=== PATIENT | female | born 1975 | race Caucasian/White ===

== ENCOUNTER 2020-08-23 11:21 | Outpatient (REF) | payer BC, SELFPAY | END 2020-08-23 11:22 | disposition home or self-care (01) | LOC: HO.LAB 11:21 | PROVIDERS: Visit Provider Internal Medicine | DX: Z00.00 Encounter for general adult medical examination without abnormal findings (principal); Z12.4 Encounter for screening for malignant neoplasm of cervix | CPT/HCPCS: 88142 ==

== ENCOUNTER → 2022-02-18 13:15 | Outpatient (RCR) | payer BC, SELFPAY ==
--- NOTE | 2020-08-28 17:49 | MHC.PT.EP ---
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 Pt is deemed an appropriate candidate to receive skilled PT services to address his physical impairments in order to improve his functional ability. Frequency and Duration: The patient will be seen 2x/ wk x 5 wks. Short Term Goals: In 1 week: initiate HEP with evidence of compliance. In 3 weeks: Pt will improve L knee flexion ROM to > 124 degrees; initial: 118 and painful. Fci Goals: In 5 weeks: I with HEP. In 5 weeks: Pt will be able to negotiate stairs without difficulty; initial: moderate difficulty. Treatment Plan: Modalities to reduce pain, spasms and effusion. Manual therapy to restore motion and function. Therapeutic exercise to improve strength and flexibility. Neuromuscular re-education for posture and balance. Therapeutic activities to return to functional activities of daily living. Please sign and return to therapist. Thank you for your referral.
--- NOTE | 2020-10-30 15:40 | MHC.PT.DC ---
[facility] [place] Office [place] Office [place] Office [address] Doreen Dyer [address] [phone] F: [phone] F: [phone] F: [phone] F: [phone] Physical Therapy Discharge Report Diagnosis: L knee pain Date of Surgery: Date of Evaluation: 08/28/20 Date of Discharge: 10/30/20 Treatments to Date: 1 Cancellations to Date: 0 No Shows to Date: 0 Discharge Status: Discharge Summary: Pt did not f/u with PT after her initial evaluation and is DC'd per [facility] attendance policy. Electronically signed by: Austin Estrada PT. Please sign and return to therapist. Thank you for your referral.
== END | disposition home or self-care (01) ==
LOC: HO.PTCHIC 08-28 13:51
PROVIDERS: PCP Internal Medicine; Visit Provider Internal Medicine
DX: M25.562 Pain in left knee (principal)
CPT/HCPCS: 97110; 97161

== ENCOUNTER 2022-03-26 11:20 | Outpatient (REF) | payer BC, SELFPAY ==
[2022-03-26 13:57] LABS: MANUAL DIFF FLAG NO
[2022-03-26 14:03] LABS: Basophils Percent Auto 0.3 % (0-2); Eosinophils Absolute Auto 0.2 X10*3/uL (0.0-0.4); Hematocrit 40.8 % (37.0-47.0); Hemoglobin 13.3 g/dl (12.0-16.0); Imm Gran Abs Auto 0.02 X10*3/uL (0.00-0.03); Imm Gran Pct Auto 0.3 % (0.0-0.4); Lymphocytes Absolute Auto 1.1 X10*3/uL (1.2-4.9); Lymphocytes Percent Auto 14.8 % (20-40); Mean Corpuscular HGB Conc 32.6 g/dl (31.0-35.0); Mean Corpuscular Hemoglobin 31.4 pg (27.0-33.0); Mean Corpuscular Volume 96.2 fL (80.0-98.0); Mean Platelet Volume 10.3 fL (9.4-12.3); Monocytes Absolute Auto 0.2 X10*3/uL (0.1-1.2); Monocytes Percent Auto 3.1 % (2-11); Neutrophils Absolute Auto 6.1 x10*3/uL (2.0-8.3); Neutrophils Percent Auto 79.5 % (45-73); Platelet Count 244 X10*3/uL (160-400); Red Blood Count 4.24 X10*6/uL (4.20-5.50); Red Cell Distribution Width 12.3 % (11.0-16.0); White Blood Count 7.6 X10*3/uL (4.8-10.8)
[2022-03-26 14:19] LABS: Alanine Aminotransferase 27 U/L (0-31); Albumin Level 4.2 g/dL (3.5-5.0); Alkaline Phosphatase 101 U/L (39-117); Anion Gap 15 (12-20); Aspartate Amino Transferase 24 U/L (5-31); Bilirubin Total 0.4 mg/dL (0.0-1.0); Blood Urea Nitrogen 6 mg/dL (9-16); Calcium 8.9 mg/dL (8.4-10.2); Carbon Dioxide 23 mmol/L (22-29); Chloride 107 mmol/L (96-108); Estimated Glomerular Filt Rate > 60; Glucose Random 147 mg/dL (60-115); Potassium 4.1 mmol/L (3.3-5.1); Sodium 141 mmol/L (135-145)
== END 2022-03-26 11:21 | disposition home or self-care (01) ==
LOC: HO.WFDLDS 11:20
PROVIDERS: Visit Provider Family Medicine
DX: Z00.00 Encounter for general adult medical examination without abnormal findings (principal); R10.2 Pelvic and perineal pain
CPT/HCPCS: 36415; 80053; 85025

== ENCOUNTER 2022-05-01 15:05 | Outpatient (REF) | payer BC, SELFPAY ==
--- NOTE | ~2022-05-01 | US_ITS ---
EXAMINATION: US PELVIS COMPLETE CLINICAL INFORMATION: Pelvic and perineal pain; the last menstrual period was 9 months prior. COMPARISON: None. TECHNIQUE: Transabdominal and transvaginal imaging were performed. FINDINGS: The uterus is of normal size and echogenicity measuring 7.7 x 4.7 x 5.2 cm. The uterus is anteverted and anteflexed. A regular homogeneous endometrium is identified measuring 0.5 cm. Nabothian cysts are seen within the cervix. FIBROIDS: There are 3 fibroids seen. 1. Location: Posterior body, myometrial. Size: 0.6 x 0.6 x 0.8 cm. Fibroid characteristics: Heterogeneously hypoechoic. 2. Location: Anterior upper body, myometrial. Size: 2.2 x 1.8 x 1.8 cm. Fibroid characteristics: Heterogeneously hypoechoic. 3. Location: Anterior body, subendometrial. Size: 1.0 x 1.2 x 1.3 cm. Fibroid characteristics: Heterogeneous hyperechoic. Both ovaries are of normal size and echogenicity. The right measures 2.2 x 9.3 x 2.9 cm for a volume of 3.1 mL. The left measures 3.3 x 1.9 x 2.1 cm for a volume of 6.8 mL. There is no pelvic free fluid. No adnexal masses seen. US/US pelvic and transvaginal IMPRESSION: 1. There are uterine fibroids, as detailed. 2. Nabothian cysts are seen within the cervix.
== END 2022-05-01 15:06 | disposition home or self-care (01) ==
LOC: HO.HMGCX 15:05
PROVIDERS: Visit Provider Family Medicine
DX: R10.2 Pelvic and perineal pain (principal)
CPT/HCPCS: 76830; 76856

== ENCOUNTER 2022-11-23 13:17 | Outpatient (REF) | payer BC, SELFPAY ==
[2022-11-24 14:44] LABS: Influenza A PCR NEGATIVE (Negative); Influenza B PCR NEGATIVE (Negative); Resp Syncy Virus RNA Qual PCR NEGATIVE (Negative); SARS COV2 PCR INHOUSE NEGATIVE (Negative)
== END 2022-11-23 13:18 | disposition home or self-care (01) ==
LOC: HO.LNP 13:17
PROVIDERS: Visit Provider Nurse Practitioner Family
DX: Z20.822 Contact with and (suspected) exposure to COVID-19 (principal); J06.9 Acute upper respiratory infection, unspecified
CPT/HCPCS: 0241U

== ENCOUNTER 2023-03-12 13:14 | Outpatient (REF) | payer BC, SELFPAY ==
[2023-03-12 18:10] LABS: Influenza A PCR NEGATIVE (Negative); Influenza B PCR NEGATIVE (Negative); Resp Syncy Virus RNA Qual PCR NEGATIVE (Negative); SARS COV2 PCR INHOUSE NEGATIVE (Negative)
== END 2023-03-12 13:15 | disposition home or self-care (01) ==
LOC: HO.LNP 13:14
PROVIDERS: Visit Provider Nurse Practitioner Family
DX: Z20.822 Contact with and (suspected) exposure to COVID-19 (principal); R09.89 Other specified symptoms and signs involving the circulatory and respiratory systems
CPT/HCPCS: 0241U

== ENCOUNTER → 2023-03-18 14:29 | Outpatient (BNVA) | payer BC, SELFPAY | PROVIDERS: PCP Family Medicine; Visit Provider Surgery | DX: K64.9 Unspecified hemorrhoids (principal) | CPT/HCPCS: 46600 ==

== ENCOUNTER 2023-08-12 10:42 | Outpatient (AMB) | payer OTHER, BC, SELFPAY ==
[2023-08-12 10:44] VITALS: BP 120/80; PULSE 85; TEMP 36.7; O2SAT 99; BMI 42.0
--- NOTE | 2023-08-12 10:44 | MHC.OFFWIV ---
Intake Vital Signs 08/12/23 10:44 Height 5 ft 6 in Weight 260 lb BMI 42.0 BP 120/80 Blood Pressure Location Rt brachial Position Sitting Pulse 85 Pulse Source Pulse Oximeter Temp 98.0 F Temp Source Temporal Artery Scan Pulse Oximetry (%) 99 Oxygen Delivery Method Room Air Intake Visit Reasons: EP, WC/Right knee pain due to fall at work Intake Note: pt is here for c/o right knee pain fell at work Patient Tobacco Use Status: Former Tobacco user Allergies No Known Allergies Allergy (Verified 08/12/23 10:44) Do you need a note to return to daycare/school/sports/work: Yes HPI HPI Comments History of Present Illness Details This is a 48-year-old female with no stated past medical history, 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 Patient states that she arrived at work at 8:00 a.m. 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 Patient states that she fell onto her right knee and fell to the ground but denies any head injury or loss of consciousness. Patient is complaining of an aching pain in her right lateral and right posterior knee that does not radiate. Patient used an ice compress and four [id number] ibuprofen prior to this evaluation. 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: House Alcohol intake: never Patient Tobacco Use Status: Former Tobacco user e-Cigarette/Vaping Use: Never Used Second Hand Smoke Exposure: No service: No Current occupational status: employed Current occupational exposures/hazards: No Cognitive needs: No Hearing needs: No Vision needs: No Review of Systems Const All systems reviewed & are unremarkable except as noted in HPI and below Reports no additional complaints Card Reports no additional complaints Resp Reports no additional complaints Musc Reports abnormal gait and Reports other (right knee pain) Skin/Breast Reports system reviewed and no additional complaints, except as documented Neuro Reports abnormal gait and Denies Sensory deficit (Neuro) Physical Exam Vital Signs: Last Vital Signs Temp 98.0 F 08/12/23 10:44 Pulse 85 08/12/23 10:44 BP 120/80 08/12/23 10:44 Pulse Ox 99 08/12/23 10:44 Oxygen Delivery Method Room Air 08/12/23 10:44 BMI result Body Mass Index 42.0 Const General: cooperative, healthy appearing, comfortable and well developed; No no acute distress Nutritional Appearance: overweight Orientation/consciousness: patient oriented x3 Limitations: no limitations Skin General skin exam: no rashes or lesions noted Lesions: no lesions Trauma: no lacerations or abrasions, no abrasions, no lacerations and no punctures noted Wounds: no wounds Neuro General: patient oriented x3 Gait exam (Neuro): Antalgic gait present (favoring RLE when ambulating) Sensory Exam: No Sensory deficit (Neuro) Extrem Right lower extremity: normal to inspection, full ROM (passive ROM right knee intact) and knee Details: normal to inspection and tenderness Location: of the popliteal fossa, of the lateral joint line and of the distal upper leg (posterior right thigh, distal tenderness; no right calf tenderness); not of the patella and not of the proximal tibia; no swelling; no edema and joint enlargement noted Psych Appearance: grossly normal Mental Status: mental status grossly normal Insight: Good insight present (Psych) Judgement: Good judgement present (Psych) Results Reviewed Results Reviewed: right knee film reviewed with patient; no actute fracture Assessment & Plan Assessment & Plan (1) Right knee pain: Code(s): M25.561 - Pain in right knee Plan: Clinical examination is consistent with a right knee strain; patient will be prescribed Naprosyn, RICE instructions and follow-up with her work-place medical department in 3 days. Medications: New naproxen (Naprosyn) 500 mg PO BID 20 tabs 0RF Coding Level of Care Code New Pt Level 3 (79748) Diagnoses Right knee pain M25.561 Time Spent (min) 25
== END 2023-08-12 11:37 | disposition home or self-care (01) ==
PROVIDERS: PCP Family Medicine; Visit Provider Physician Assistant
DX: M25.561 Pain in right knee (principal)
CPT/HCPCS: 99203

== ENCOUNTER 2023-08-12 10:57 | Outpatient (REF) | payer OTHER, BC, SELFPAY ==
--- NOTE | ~2023-08-12 | XR_ITS ---
EXAMINATION: XR KNEE, RIGHT CLINICAL INFORMATION: Knee pain status post trauma COMPARISON: None available. TECHNIQUE: Four views of the right knee. FINDINGS: Mild tricompartmental degenerative changes are present with some lateral tibial plateau: Femoral condyle osteophytes. Small posterior osteophytes are present at the superior and inferior aspects of the patella. A small joint effusion is seen. There is no chondrocalcinosis. No fractures or dislocations. XR/XR knee RT 4V IMPRESSION: Mild tricompartmental degenerative changes with small joint effusion.
== END 2023-08-12 10:58 | disposition home or self-care (01) ==
LOC: HO.HMGCX 10:57
PROVIDERS: PCP Family Medicine; Visit Provider Physician Assistant
DX: M25.561 Pain in right knee (principal)
CPT/HCPCS: 73564

== ENCOUNTER 2023-08-19 14:34 | Outpatient (AMB) | payer OTHER, BC, SELFPAY ==
--- NOTE | 2023-08-19 14:35 | AM.OFFWIN_ITS ---
Intake Vital Signs 08/19/23 14:37 Height 5 ft 6 in Weight 260 lb BMI 42.0 BP 124/70 Blood Pressure Location Rt brachial Position Sitting Pulse 80 Pulse Source Pulse Oximeter Temp 97.1 F Temp Source Temporal Artery Scan Pulse Oximetry (%) 99 Oxygen Delivery Method Room Air Intake Visit Reasons: EP WC RT knee Injury/Still painful Intake Note: Pt is here c/o right knee pain. Pt states she fell last week and has still not been able to put her right leg straight. Patient Tobacco Use Status: Former Tobacco user Allergies No Known Allergies Allergy (Verified 08/19/23 14:36) Do you need a note to return to daycare/school/sports/work: Yes HPI HPI Comments History of Present Illness Details the patient presents to urgent care for evaluation of ongoing right knee pain. She states that she fell a week ago and was seen here after the initial injury. She fell directly onto her right knee and obtained x-rays which did not reveal fracture. She reports ongoing pain and difficulty ambulating. No recent trauma. She has been using Naprosyn, But ran out and is requesting if a muscle relaxer would be helpful for this problem. In addition she has been out of work and needs another work note. Has a follow-up with PCP next Wednesday [facility] Medical History Bleeding hemorrhoids Herpes Obese Bunion of right foot Knee pain, left Annual physical exam Dysplastic nevi History of broken nose Surgical History History of foot surgery History of tonsillectomy Family History Mother No problems noted. 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: House Alcohol intake: never Patient Tobacco Use Status: Former Tobacco user e-Cigarette/Vaping Use: Never Used Second Hand Smoke Exposure: No service: No Current occupational status: employed Current occupational exposures/hazards: No Cognitive needs: No Hearing needs: No Vision needs: No Physical Exam Vital Signs: Last Vital Signs Temp 97.1 F 08/19/23 14:37 Pulse 80 08/19/23 14:37 BP 124/70 08/19/23 14:37 Pulse Ox 99 08/19/23 14:37 Oxygen Delivery Method Room Air 08/19/23 14:37 BMI result Body Mass Index 42.0 Const General: cooperative and healthy appearing Orientation/consciousness: patient oriented x3 Back/Spine/Pelvis Back: No back tenderness Skin General skin exam: no rashes or lesions noted Neuro General: patient oriented x3 Extrem Other: Knee: limited range of motion. No erythema induration or abrasions. No ligamentous instability appreciated. Tenderness with palpation, medial aspect No lower extremity edema. mild effusion Psych Attitude: cooperative Results Reviewed Results Reviewed: X-ray from last week reviewed: FINDINGS: Mild tricompartmental degenerative changes are present with some lateral tibial plateau: Femoral condyle osteophytes. Small posterior osteophytes are present at the superior and inferior aspects of the patella. A small joint effusion is seen. There is no chondrocalcinosis. No fractures or dislocations. XR/XR knee RT 4V IMPRESSION: Mild tricompartmental degenerative changes with small joint effusion. Assessment & Plan Assessment & Plan (1) Right knee injury: Code(s): S89.91XA - Unspecified injury of right lower leg, initial encounter Plan Patient will need follow-up with PCP. She may eventually need referral to Orthopedics and possible MRI. Knee immobilizer was given today in the office. Will prescribe ibuprofen 600 mg and give patient work note through Wednesday. Medications: New ibuprofen 600 mg PO Q6H PRN 20 tabs 0RF pain Coding Level of Care Code Est Pt Level 3 (54266) Diagnoses Right knee injury S89.91XA
[2023-08-19 14:37] VITALS: BP 124/70; PULSE 80; TEMP 36.2; O2SAT 99; BMI 42.0
== END 2023-08-19 15:15 | disposition home or self-care (01) ==
PROVIDERS: PCP Family Medicine; Visit Provider Emergency Medicine
DX: S89.91XA Unspecified injury of right lower leg, initial encounter (principal)
CPT/HCPCS: 99213

== ENCOUNTER 2023-08-24 10:16 | Outpatient (AMB) | payer OTHER, BC, SELFPAY ==
[2023-08-24 10:26] VITALS: BP 128/66; PULSE 108; RESP 14; O2SAT 98; BMI 41.3
--- NOTE | 2023-08-24 10:26 | MHC.PC.OV ---
Vital Signs 08/24/23 10:26 Height 5 ft 6 in Weight 256 lb BMI 41.3 BP 128/66 Blood Pressure Location Lt brachial Position Sitting Respiration 14 Pulse 108 H Pulse Source Pulse Oximeter Pulse Oximetry (%) 98 Oxygen Delivery Method Room Air Intake Visit Reasons: Follow up from walk in Knee Inj Intake Note: Patient is here to follow up on a right knee injury from 08.12.23. Patient reports she fell on the pavement in a parking lot and was seen by urgent care in [place]. Patient reports she had xrays done and has not heard the results just yet. Patient reports hearing popping noises, having difficulty with stairs and straightening her leg. Manufacturing Engineer Required: No Accompanied by: Self / Same As Patient Allergies No Known Allergies Allergy (Verified 08/24/23 10:34) Tobacco use date assessed: 12/23/22 HPI Follow up from walk in Knee Inj HPI Details Pt presents to f/u R knee pain/injury 08/12/23. Patient reports she fell on the pavement in a parking lot and was seen by urgent care in [place]. Patient reports she had xrays done and has not heard the results just yet. Patient reports hearing popping noises, having difficulty with stairs and straightening her leg. She has been using ibuprofen for relief along with ice/heat. She states she has not had physical therapy yet. [facility] Medical History Bleeding hemorrhoids Herpes Obese Bunion of right foot Knee pain, left Annual physical exam Dysplastic nevi History of broken nose Surgical History History of foot surgery History of tonsillectomy Family History Mother No problems noted. 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 Dylan Cole, Kristen Correa, Eloy Hamilton and colleagues, with an educational jo from [employer]. Review of Systems Const Denies chills, Denies fatigue, Denies fever(s), Denies headache(s) and Denies weakness ENT Denies dizziness and Denies headache(s) Card Denies dyspnea Resp Denies cough, Denies dyspnea, Denies wheezing and Denies other (shortness of breath) Musc Details: R knee pain Denies numbness and Denies tingling Neuro Denies dizziness, Denies headache(s), Denies numbness, Denies tingling and Denies weakness Psych Denies anxiety and Denies depression Endo Denies fatigue Aller/Immun Denies wheezing Physical exam (Primary Care) Vital Signs: Last Vital Signs Pulse 108 H 08/24/23 10:26 Resp 14 08/24/23 10:26 BP 128/66 08/24/23 10:26 Pulse Ox 98 08/24/23 10:26 Oxygen Delivery Method Room Air 08/24/23 10:26 BMI result Body Mass Index 41.3 Tobacco/Smoking Status: Tobacco use Status Tobacco use date assessed 12/23/22 08/24/23 10:35 Patient Tobacco Use Status Former Tobacco user 08/24/23 10:35 e-Cigarette/Vaping Use Never Used 08/24/23 10:35 Thrive Assessment: Date of Thrive Assessment Date Thrive assessed 12/23/22 08/24/23 10:35 Const General: well developed; No acute distress Nutritional Appearance: well nourished Orientation/consciousness: patient oriented x3 HENMT Head: Yes normocephalic and Yes atraumatic Eyes General: appearance normal, both eyes and all related structures Pupils: Equal, round and reactive pupils present EOM: EOMs intact bilaterally Resp Effort & Inspection: normal respiratory effort Neuro General: patient oriented x3 and gait normal Cranial nerves: Yes Equal, round and reactive pupils present Psych Affect: normal affect Assessment and Plan Assessment & Plan (1) Right knee pain: Code(s): M25.561 - Pain in right knee Plan: Ongoing?right?knee?pain?after?fall?and?contusion.??X-rays?x2?have?been?negative?except?for?degenerative?changes?and?a?small?effusion. Start?physical?therapy Referred?to?Ortho Will?give?her?a?short?course?of?prednisone?and?she?continue?ibuprofen. 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 Orders: Orders PT Evaluation and Treatment Today M25.561 - Pain in right knee Referrals Orthopedics Referral M25.561 - Pain in right knee Medications: New cyclobenzaprine 10 mg PO TID 3 days PRN 9 tabs 0RF muscle spasm M25.561 - Pain in right knee prednisone 40 mg (2 x 20 mg) PO DAILY 4 days 8 tabs 0RF Coding Level of Care Code Est Pt Level 3 (13088) Diagnoses Right knee pain M25.561
== END 2023-08-24 11:19 | disposition home or self-care (01) ==
PROVIDERS: PCP Family Medicine; Visit Provider Family Medicine
DX: M25.561 Pain in right knee (principal)
CPT/HCPCS: 99213

== ENCOUNTER 2023-09-06 13:32 | Outpatient (AMB) | payer OTHER, BC, SELFPAY ==
[2023-09-06 13:45] VITALS: BP 122/74; PULSE 81; O2SAT 99; BMI 40.8
--- NOTE | 2023-09-06 13:45 | A.OFFPC_ITS ---
Vital Signs 09/06/23 13:45 Height 5 ft 6 in Weight 252 lb 8 oz BMI 40.8 BP 122/74 Blood Pressure Location Lt brachial Position Sitting Pulse 81 Pulse Oximetry (%) 99 Oxygen Delivery Method Room Air Intake Visit Reasons: follow up knee inj Intake Note: Patient is here for follow up on knee injury on 08/12/2023. Allergies No Known Allergies Allergy (Verified 09/06/23 13:47) Tobacco use date assessed: 09/06/23 HPI follow up knee inj HPI Details 48 y/o female presents to f/u R jeovany ayala. She has an appt. with an fire prevention specialist next week. She reports she has seen physical therapy. She reports muscle relaxants and ibuprofen 600mg has been helping. She did note she had a muscle spasm the other day and had hurt her knee again which reversed her progress a bit. [facility] Medical History Bleeding hemorrhoids Herpes Obese Bunion of right foot Knee pain, left Annual physical exam Dysplastic nevi History of broken nose Surgical History History of foot surgery History of tonsillectomy Family History Mother No problems noted. 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 Dylan Cole, Kristen Correa, Eloy Hamilton and colleagues, with an educational jo from [employer]. Review of Systems Const Denies chills, Denies fatigue, Denies fever(s), Denies headache(s) and Denies weakness ENT Denies dizziness and Denies headache(s) Card Denies dyspnea Resp Denies cough, Denies dyspnea, Denies wheezing and Denies other (shortness of breath) Musc Denies numbness and Denies tingling Neuro Denies dizziness, Denies headache(s), Denies numbness, Denies tingling and Denies weakness Psych Denies anxiety and Denies depression Endo Denies fatigue Aller/Immun Denies wheezing Physical exam (Primary Care) Vital Signs: Last Vital Signs Pulse 81 09/06/23 13:45 BP 122/74 09/06/23 13:45 Pulse Ox 99 09/06/23 13:45 Oxygen Delivery Method Room Air 09/06/23 13:45 BMI result Body Mass Index 40.8 Tobacco/Smoking Status: Tobacco use Status Tobacco use date assessed 09/06/23 09/06/23 13:52 Patient Tobacco Use Status Former Tobacco user 09/06/23 13:52 e-Cigarette/Vaping Use Never Used 09/06/23 13:52 Thrive Assessment: Date of Thrive Assessment Date Thrive assessed 12/23/22 09/06/23 13:52 Const General: well developed; No acute distress Nutritional Appearance: well nourished and obese morbidly obese Orientation/consciousness: patient oriented x3 [facility] Head: Yes normocephalic and Yes atraumatic Eyes General: appearance normal, both eyes and all related structures Pupils: Equal, round and reactive pupils present EOM: EOMs intact bilaterally Resp Effort & Inspection: normal respiratory effort Neuro General: patient oriented x3 and gait normal Cranial nerves: Yes Equal, round and reactive pupils present Psych Affect: normal affect Assessment and Plan Assessment & Plan (1) Right knee pain: Code(s): M25.561 - Pain in right knee Plan: Ongoing?right?knee?pain?and?contusion?with?muscle/tendon?strain Continue?ice?and?elevation Continue?NSAIDs?and?I?will?give?her?another?short?course?of?muscle?relaxant. She?is?refer?to?ortho?and?has?an?appointment?on?September?.??She?will?follow- up?with?me?following?week. She?will?remain?out?of?work?until?September?. (2) Contusion of right knee: Code(s): S80.01XA - Contusion of right knee, initial encounter Plan: As?above (3) Muscle strain of right knee: Code(s): S86.911A - Strain of unspecified muscle(s) and tendon(s) at lower leg level, right leg, initial encounter Plan: As?above Medications: Refilled ibuprofen 600 mg PO Q6H PRN 20 tabs 0RF pain cyclobenzaprine 10 mg PO TID PRN 9 tabs 0RF muscle spasm 3 days M25.561 - Pain in right knee Coding Level of Care Code Est Pt Level 3 (86933) Diagnoses Right knee pain M25.561 Contusion of right knee S80.01XA Muscle strain of right knee S86.911A
== END 2023-09-06 14:36 | disposition home or self-care (01) ==
PROVIDERS: PCP Family Medicine; Visit Provider Family Medicine
DX: M25.561 Pain in right knee (principal); S80.01XA Contusion of right knee, initial encounter; S86.911A Strain of unspecified muscle(s) and tendon(s) at lower leg level, right leg, initial encounter
CPT/HCPCS: 99213

== ENCOUNTER 2023-09-15 11:14 | Outpatient (REF) | payer OTHER, BC, SELFPAY ==
--- NOTE | ~2023-09-15 | XR_ITS ---
EXAMINATION: XR KNEE AP STANDING BILATERAL KNEES XR SUNRISE RIGHT KNEE CLINICAL INFORMATION: Pain in right knee. COMPARISON: August 12, 2023. TECHNIQUE: AP bilateral standing view of the knees was obtained. [place] view of the right knee. FINDINGS: Right Knee: Qomw-mq-sharppxz medial joint space narrowing. Small tricompartmental osteophytes. Mild narrowing of the patellofemoral compartment. Left Knee: Single view of the left knee demonstrates rbjh-jy-mcckgbsq medial joint space narrowing with medial marginal osteophytes. XR/XR knee RT 1V IMPRESSION: Pinu-db-xpggxenm degenerative changes bilateral knees.
--- NOTE | ~2023-09-15 | XR_ITS ---
EXAMINATION: XR KNEE AP STANDING BILATERAL KNEES XR SUNRISE RIGHT KNEE CLINICAL INFORMATION: Pain in right knee. COMPARISON: August 12, 2023. TECHNIQUE: AP bilateral standing view of the knees was obtained. [place] view of the right knee. FINDINGS: Right Knee: Lfjm-jl-edymmetd medial joint space narrowing. Small tricompartmental osteophytes. Mild narrowing of the patellofemoral compartment. Left Knee: Single view of the left knee demonstrates pykx-sh-mbjslmsv medial joint space narrowing with medial marginal osteophytes. XR/XR knee standing BI IMPRESSION: Evwg-wz-iqtsludy degenerative changes bilateral knees.
== END 2023-09-15 11:15 | disposition home or self-care (01) ==
LOC: HO.HOSX 11:14
PROVIDERS: Visit Provider Physician Assistant
DX: M17.11 Unilateral primary osteoarthritis, right knee (principal); S80.01XA Contusion of right knee, initial encounter; M25.562 Pain in left knee
CPT/HCPCS: 20610; 73560; 73565; 99202; J1040

== ENCOUNTER 2023-09-15 14:51 | Outpatient (AMB) | payer OTHER, BC, SELFPAY ==
--- NOTE | 2023-09-15 15:04 | A.OFFVIS_ITS ---
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 Patient reports a fall at work landing on her right knee. She was treated at a walk in clinic where xrays were taken as well as PCP who ordered PT. She states attending PT twice a week. Currently continues to have intermittent pain that fluctuates in intensity. Finds support with knee brace. Finds no relief with ibuprofen and some relief with cyclobenzaprine however she had finished her rx. 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 She was seen at walk-in clinic where x-rays were performed and she was also seen by her PCP who ordered physical therapy. She states she has intermittent pain and limited ROM in her knee which fluctuates in intensity. Her pain is aggravated with ambulation and stair use. She also experiences cracking, clicking and crunching in her knee. She is working with physical therapy as instructed. She finds relief with her knee brace. She finds no relief with ibuprofen and mild relief with cyclobenzaprine. She does not have a history of diabetes. 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 [facility] Medical History Bleeding hemorrhoids Herpes Obese Bunion of right foot Knee pain, left Annual physical exam Dysplastic nevi History of broken nose Surgical History History of foot surgery History of tonsillectomy Family History Mother No problems noted. 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 Housing: House Alcohol intake: never Patient Tobacco Use Status: Former Tobacco user e-Cigarette/Vaping Use: Never Used Second Hand Smoke Exposure: No service: No Current occupational status: unemployed Current occupational exposures/hazards: No Cognitive needs: No Hearing needs: No Vision needs: No Review of Systems Const All systems reviewed & are unremarkable except as noted in HPI and below Physical Exam Vital Signs: BMI result Body Mass Index 40.7 Const General: cooperative, healthy appearing, comfortable, no acute distress, well developed and alert Orientation/consciousness: patient oriented x3 HEENT Head: Yes normal to inspection, Yes normocephalic and Yes atraumatic Eyes General: appearance normal, both eyes and all related structures Resp Effort & Inspection: normal respiratory effort and able to speak in complete sentences Cardio Rate: regular rate Peripheral pulses: Peripheral pulses 2+ throughout GI Palpation (GI): Soft to palpation Skin Lesions: no lesions Rashes: no rashes Neuro General: patient oriented x3 Extrem Other: Right knee: Skin intact, no erythema or joint effusion. Tenderness along the medial and lateral joint line. Full ROM with crepitus. Negative Carol?s. No ligamentous laxity. NVI. Office Procedures Joint Injection/Drain Joint Injection/Drain Primary Site: right knee Prep: site was prepped using aseptic technique and ethochloride spray was applied Injected: 80 mg of, DepoMedrol, with 8 mL of, 1% plain lidocaine and in the joint Approach Used: anterolateral Procedure: The patient tolerated the procedure well and there was some relief with the local anesthesia Coding 92608 - Glenohumeral/Tronchanteric Bursa/Intraarticular Procedure code (CPT) selection complete Results Reviewed Results Reviewed: Xrays were obtained in the office today and personally reviewed by me of the right knee show PF oa Assessment & Plan Assessment & Plan (1) Patellofemoral arthritis of right knee: Code(s): M17.11 - Unilateral primary osteoarthritis, right knee (2) Contusion of right knee: Code(s): S80.01XA - Contusion of right knee, initial encounter Qualifiers: Encounter type: initial encounter Qualified Code(s): S80.01XA - Contusion of right knee, initial encounter Plan We discussed options today which include steroid injection. They did consent to move forward with the right knee injection, which was tolerated well. I recommended rest, ice and elevation and OTC anti-inflammatories PRN for discomfort. She will continue with physical therapy and remain out of work September 27, at which point she will return light duty and avoid prolonged standing, walking, stairs, pushing, pulling or carrying. If symptoms persist or worsens over the next 6-8 weeks, patient will contact the office, otherwise follow-up as needed. Orders: Orders PT Evaluation and Treatment 09/15/23 M17.11 - Unilateral primary osteoarthritis, right knee XR knee standing BI 09/15/23 M25.561 - Pain in right knee, M25.562 - Pain in left knee XR knee RT 1V 09/15/23 M25.561 - Pain in right knee Patient Instructions: Scribed for Ellen Mike PA-C, by Antwan López medical records assistant, on 09/15/2023 at 3:00 PM EST. I, Ellen Mike PA-C, have personally reviewed and agree with the information entered by the scribe. Coding Level of Care Code New Pt Level 3 (73824) Diagnoses Patellofemoral arthritis of right knee M17.11 Contusion of right knee, initial encounter S80.01XA Encounter type: initial encounter CPT Codes Coding - Joint 7: 89165 - Glenohumeral/Tronchanteric Bursa/Intraarticular ([id number])
[2023-09-15 15:08] VITALS: BMI 40.7
== END 2023-09-15 15:35 | disposition home or self-care (01) ==
PROVIDERS: PCP Family Medicine; Visit Provider Physician Assistant
DX: M17.11 Unilateral primary osteoarthritis, right knee (principal); S80.01XA Contusion of right knee, initial encounter
CPT/HCPCS: 20610; 99203

== ENCOUNTER 2023-09-23 15:23 | Outpatient (AMB) | payer OTHER, BC, SELFPAY ==
[2023-09-23 15:41] VITALS: BP 126/76; PULSE 83; O2SAT 97; BMI 41.2
--- NOTE | 2023-09-23 15:41 | A.OFFPC_ITS ---
Vital Signs 09/23/23 15:41 Height 5 ft 6 in Weight 255 lb 2 oz BMI 41.2 BP 126/76 Blood Pressure Location Lt brachial Position Sitting Pulse 83 Pulse Source Pulse Oximeter Pulse Oximetry (%) 97 Oxygen Delivery Method Room Air Intake Visit Reasons: Follow-up?right?knee?pain Intake Note: Patient is here for ollow up on right knee, feels like she is developing a head cold. Patient would like refill of Ibuprofen and would like some Flonase for the head cold. Allergies No Known Allergies Allergy (Verified 09/23/23 15:44) Tobacco use date assessed: 09/06/23 Dental Screening Dental Screen Date: 09/23/23 Did you have a dental visit in the last 12 months?: Yes Did you have a dental problem in the last 6 months where you did not have access to dental care?: No Was dental information given to patient?: Patient has dentist HPI Follow-up?right?knee?pain HPI Details 48 y/o female presents to f/u R knee marga n. Had seen orthopedics 09/15/23. She had tolerated R knee injection well. They had mentioned she could go back to work with light duty 09/27/23. Pt has complaints of a head cold. She has not done any covid testing. [facility] Medical History Bleeding hemorrhoids Herpes Obese Bunion of right foot Knee pain, left Annual physical exam Dysplastic nevi History of broken nose Surgical History History of foot surgery History of tonsillectomy Family History Mother No problems noted. 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 Dylan Cole, Kristen Correa, Eloy Hamilton and colleagues, with an educational jo from [employer]. Review of Systems Const Denies chills, Denies fatigue, Denies fever(s), Denies headache(s) and Denies weakness ENT Denies dizziness and Denies headache(s) Card Denies dyspnea Resp Denies cough, Denies dyspnea, Denies wheezing and Denies other (shortness of breath) Musc Denies numbness and Denies tingling Neuro Denies dizziness, Denies headache(s), Denies numbness, Denies tingling and Denies weakness Psych Denies anxiety and Denies depression Endo Denies fatigue Aller/Immun Denies wheezing Physical exam (Primary Care) Vital Signs: Last Vital Signs Pulse 83 09/23/23 15:41 BP 126/76 09/23/23 15:41 Pulse Ox 97 09/23/23 15:41 Oxygen Delivery Method Room Air 09/23/23 15:41 BMI result Body Mass Index 41.2 Tobacco/Smoking Status: Tobacco use Status Tobacco use date assessed 09/06/23 09/23/23 15:45 Patient Tobacco Use Status Former Tobacco user 09/23/23 15:45 e-Cigarette/Vaping Use Never Used 09/23/23 15:45 Thrive Assessment: Date of Thrive Assessment Date Thrive assessed 12/23/22 09/23/23 15:45 Const General: well developed; No acute distress Nutritional Appearance: well nourished Orientation/consciousness: patient oriented x3 HENMT Head: Yes normocephalic and Yes atraumatic Eyes General: appearance normal, both eyes and all related structures Pupils: Equal, round and reactive pupils present EOM: EOMs intact bilaterally Resp Effort & Inspection: normal respiratory effort Neuro General: patient oriented x3 and gait normal Cranial nerves: Yes Equal, round and reactive pupils present Psych Affect: normal affect Assessment and Plan Assessment & Plan (1) Contusion of right knee: Code(s): S80.01XA - Contusion of right knee, initial encounter Qualifiers: Encounter type: initial encounter Qualified Code(s): S80.01XA - Contusion of right knee, initial encounter Plan: Improving?and?now?s/p?injection?therapy?with?ortho She?can?return?to?work?on?09/27/2023?for?light?duty?with?restrictions Filled?out?paperwork?with?restrictions-see?scanned?document (2) Head congestion: Code(s): R09.81 - Nasal congestion Plan: Likely?mild?viral?illness?such?as?cold. Will?check?COVID/flu/RSV?however Will?give?her?a?script?for?Flonase Orders: Orders Comprehensive [place]. Panel Fast Today Z00.00 - Encounter for general adult medical examination without abnormal findings Complete Blood Count Auto Diff Today Z00.00 - Encounter for general adult medical examination without abnormal findings Lipid Panel Today Z00.00 - Encounter for general adult medical examination without abnormal findings Microalbumin, Random (w Creat) Today I10 - Essential (primary) hypertension TSH reflex Free T4 Today Z00.00 - Encounter for general adult medical examina tion without abnormal findings UA and rflx microscopic Today Z00.00 - Encounter for general adult medical examination without abnormal findings Medications: New fluticasone propionate 50 mcg/actuation (Flonase Allergy Relief) administer into each nostril 1 spray intranasal Q12H 16 grams 2RF 30 days Refilled ibuprofen 600 mg PO Q6H PRN 20 tabs 0RF pain Coding Level of Care Code Est Pt Level 3 (01451) Diagnoses Contusion of right knee, initial encounter S80.01XA Encounter type: initial encounter Head congestion R09.81
== END 2023-09-23 16:45 | disposition home or self-care (01) ==
PROVIDERS: PCP Family Medicine; Visit Provider Family Medicine
DX: S80.01XA Contusion of right knee, initial encounter (principal); R09.81 Nasal congestion
CPT/HCPCS: 99213

== ENCOUNTER 2023-09-23 15:23 | Outpatient (REF) | payer BC, SELFPAY ==
[2023-09-24 12:27] LABS: Influenza A PCR NEGATIVE (Negative); Influenza B PCR NEGATIVE (Negative); Resp Syncy Virus RNA Qual PCR NEGATIVE (Negative); SARS COV2 PCR INHOUSE POSITIVE (Negative)
== END 2023-09-23 15:24 | disposition home or self-care (01) ==
LOC: HO.LNP 15:23
PROVIDERS: Visit Provider Family Medicine
DX: R09.89 Other specified symptoms and signs involving the circulatory and respiratory systems (principal); Z20.822 Contact with and (suspected) exposure to COVID-19
CPT/HCPCS: 0241U

== ENCOUNTER 2023-10-27 15:21 | Outpatient (AMB) | payer OTHER, BC, SELFPAY ==
--- NOTE | 2023-10-27 15:24 | MHC.OFFVIS ---
Intake Vital Signs 10/27/23 15:38 Height 5 ft 6 in Weight 255 lb BMI 41.2 Intake Visit Reasons: ov-Rt knee s/p w/c injury Intake Note: Marylin a 48 year old female presents today for an WC evaluation of right knee injury, DOI 08/12/23 & last injection 09/15/23. Patient reports her knee is still painful the injection helped a little she states that she is doing physical therapy and it is helping a little. Patient reports working light duty but is still a lot of walking . Allergies No Known Allergies Allergy (Verified 10/27/23 15:41) HPI ov-Rt knee s/p w/c injury HPI Details 48-year-old female who returns to the office today for a follow-up of right knee, 08/12/23. She continues to have throbbing pain in her knee however she does reports she has improvement since her last visit. She finds difficulty with stair use. She denies any catching, locking, or pain with twisting her knee. She had her last injection on 09/15/23 which provided her mild relief. She is working on physical therapy with mild benefits. She states she is working light duty however it does involve a lot of walking. [facility] Medical History Bleeding hemorrhoids Herpes Obese Bunion of right foot Knee pain, left Annual physical exam Dysplastic nevi History of broken nose Surgical History History of foot surgery History of tonsillectomy Family History Mother No problems noted. 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 Housing: House Alcohol intake: never Patient Tobacco Use Status: Former Tobacco user e-Cigarette/Vaping Use: Never Used Second Hand Smoke Exposure: No service: No Current occupational status: unemployed Current occupational exposures/hazards: No Cognitive needs: No Hearing needs: No Vision needs: No Review of Systems Const All systems reviewed & are unremarkable except as noted in HPI and below Physical Exam Vital Signs: BMI result Body Mass Index 41.2 Const General: cooperative, healthy appearing, comfortable, no acute distress, well developed and alert Orientation/consciousness: patient oriented x3 HEENT Head: Yes normal to inspection, Yes normocephalic and Yes atraumatic Eyes General: appearance normal, both eyes and all related structures Resp Effort & Inspection: normal respiratory effort and able to speak in complete sentences Cardio Rate: regular rate Peripheral pulses: Peripheral pulses 2+ throughout GI Palpation (GI): Soft to palpation Skin Lesions: no lesions Rashes: no rashes Neuro General: patient oriented x3 Extrem Other: Right knee: Skin intact, no erythema or joint effusion. MIld retropatella tenderness. Full ROM with crepitus. Negative Carol?s. No ligamentous laxity. NVI. Assessment & Plan Assessment & Plan (1) Patellofemoral arthritis of right knee: Code(s): M17.11 - Unilateral primary osteoarthritis, right knee (2) Contusion of right knee: Code(s): S80.01XA - Contusion of right knee, initial encounter Qualifiers: Encounter type: initial encounter Qualified Code(s): S80.01XA - Contusion of right knee, initial encounter Plan She continues to have limitations with daily activities; however, she has made progres since her last appt She will continue with her current working restrictions and she will continue with physical therapy improve her strength. I would like to see her back in 4-6 weeks for reevaluation, sooner if needed. Patient Instructions: Scribed for Ellen Mike PA-C, by Antwan López medical office asst, on 10/27/2023 at 3:30 PM EST. IEllen PA-C, have personally reviewed and agree with the information entered by the scribe. Coding Level of Care Code Est Pt Level 3 (48584) Diagnoses Patellofemoral arthritis of right knee M17.11 Contusion of right knee, initial encounter S80.01XA Encounter type: initial encounter
[2023-10-27 15:38] VITALS: BMI 41.2
== END 2023-10-27 16:11 | disposition home or self-care (01) ==
PROVIDERS: PCP Family Medicine; Visit Provider Physician Assistant
DX: M17.11 Unilateral primary osteoarthritis, right knee (principal); S80.01XA Contusion of right knee, initial encounter
CPT/HCPCS: 99213

== ENCOUNTER → 2023-10-27 15:21 | Outpatient (BNVA) | payer OTHER, BC, SELFPAY | PROVIDERS: PCP Family Medicine; Visit Provider Physician Assistant | DX: M17.11 Unilateral primary osteoarthritis, right knee (principal); S80.01XA Contusion of right knee, initial encounter | CPT/HCPCS: 99212 ==

== ENCOUNTER 2023-11-01 11:00 | Outpatient (RCR) | payer OTHER, BC, SELFPAY ==
--- NOTE | 2023-08-30 11:51 | MHC.PT.EP ---
[facility] Office [place] Office [place] Office [address] Doreen Dyer [address] [phone] F: [phone] F: [phone] F: [phone] F: [phone] Physical Therapy Plan of Care Date of Evaluation: 08/30/23 Date of Surgery: Diagnosis: This is a 48 yo female presenting to skilled PT with a script for R knee pain. Assessment: This is a 48 yo female presenting to skilled PT with a script for R knee pain. On 08/12 patient fell directly onto her right knee on the pavement in a parking lot. She has been to the walk-in in [place] 2 times since the accident and has followed up with her PCP. She reports ongoing pain, crepitus, difficulty with ambulating/stairs and with knee extension (improved since the injury but still present). Her pain is located posteriorly and medial and lateral to the patella. Pain is occasionally sharp but can be achy, dull, wet and you can feel the heat and throbbing as well as tight. She has been using Naprosyn, naproxen, ice and heat and was also given a short course of prednisone. She was also given a sleeve brace. She has been out of work and will be out of week until she sees her PCP again on 09/06. She has a orthopedic appointment as well on 09/15. Assessment reveals pain that ranges from up to a 8/10 at the worst. Patient demos decreased hip and knee ROM, strength of hip and knee, TTP at , and impaired posture with forward head and rounded shoulders as well as decreased gait and balance. Based on functional limitations, impaired QOL and pain tolerance patient is a good candidate for skilled PT 2x/wk for 5wks. Frequency and Duration: The patient will be seen 2x/wk for 5wks Short Term Goals: (in 2 weeks) Patient will improve knee AROM flexion by at least 10 degs without assist and extension by 5 degs without assist Patient will demo good understanding and performance of quad set in multiple different planes without cues from PT Patient will be I in HEP Patient will return to reciprocal gait on stairs Shelter Goals: (in 5 weeks) Patient will report 75% improvement in balance and strength of LLE as evidenced by reports no of falls or buckling in LE Patient will improve LEFs by 10 points Patient will demo WFL AROM of knee, hip and ankle Patient will demo proper squat and lift techniques without increase in pain Patient will return to work in full when medically cleared by MD Treatment Plan: Modalities to reduce pain, spasms and effusion. Manual therapy to restore motion and function. Therapeutic exercise to improve strength and flexibility. Neuromuscular re-education for posture and balance. Therapeutic activities to return to functional activities of daily living. Electronically signed by: Kristi Gramajo PT Please sign and return to therapist. Thank you for your referral.
--- NOTE | 2023-09-06 10:18 | MHC.PT.OD ---
[facility] [place] [facility] [place] [facility] [place] [facility] [address] Doreen Dyer [address] [phone] F: [phone] F: [phone] F: [phone] F: [phone] Physical Therapy Daily Note Diagnosis: This is a 48 yo female presenting to skilled PT with a script for R knee pain. Date of Surgery: Date of Evaluation: 08/30/23 Date of Treatment: 09/06/23 Treatments to Date: 3 Cancellations to Date: 0 No Shows to Date: 0 Authorized Visits: 10 Insurance End Date: Precautions/ Contraindications:NA Subjective: Patient fell and banged opp knee but did not hurt her R knee on the stairs. Reports pain last night and spasms over the weekend posteriorly. Pain Score and Location: 8 R knee Objective Flowsheet: Tests & Measures See eval Exercises recumbent bike x10 mins level 2 forward standing hip flexion and extension stretching on stair standing gastroc stretch on wedge x10 sec x5R quad sets x5 sec holds 2x10R SLR 2x10R - NT heel slides x5 sec holds 2x10R SAQ x5 sec holds 2x10R hamstring stretch supine hands under knee extending heel slowly, holding for 10 secs x10 R standing runner's stretch x3 R - NT ed regarding PT POC, anatomy, pain management, stim management, use of adjunct bracing, footwear, properties of ice IASTM posterior knee and medial knee, patellar mobs - NT KT with ed on care, rock sauce application (skin intact to light touch) anterior and posterior knee for KT Modalities IFC in supine with bolster, ice anterior and posterior knee x10 mins Assessment: 09/06: Patient continues with a significant amount of pain. Ambulating with antalgic gait and unable to achieve full extension in all planes today. She does not feel ready to return to work and is seeing the ortho the first week of September. Continued tens and KT for pain management today. 09/01: Patient with improved gait and ROM prior and during session. Trialed exercises without increase in pain noted, she was tender to touch medial knee and posterior knee. Enjoyed manual work for pain management and felt like this was beneficial. Educated with stim today on items listed above. Trialed KT with ed on care. Educated on importance of icing over the weekend. This is a 48 yo female presenting to skilled PT with a script for R knee pain. On 08/12 patient fell directly onto her right knee on the pavement in a parking lot. She has been to the walk-in in [place] 2 times since the accident and has followed up with her PCP. She reports ongoing pain, crepitus, difficulty with ambulating/stairs and with knee extension (improved since the injury but still present). Her pain is located posteriorly and medial and lateral to the patella. Pain is occasionally sharp but can be achy, dull, wet and you can feel the heat and throbbing as well as tight. She has been using Naprosyn, naproxen, ice and heat and was also given a short course of prednisone. She was also given a sleeve brace. She has been out of work and will be out of week until she sees her PCP again on 09/06. She has a orthopedic appointment as well on 09/15. Assessment reveals pain that ranges from up to a 8/10 at the worst. Patient demos decreased hip and knee ROM, strength of hip and knee, TTP at , and impaired posture with forward head and rounded shoulders as well as decreased gait and balance. Based on functional limitations, impaired QOL and pain tolerance patient is a good candidate for skilled PT 2x/wk for 5wks. PT Plan: ther-ex for ROM and strengthening, bike, gait, functional training, manual work for tissue release and swelling/pain management, ice Short Term Goals: (in 2 weeks) Patient will improve knee AROM flexion by at least 10 degs without assist and extension by 5 degs without assist Patient will demo good understanding and performance of quad set in multiple different planes without cues from PT Patient will be I in HEP Patient will return to reciprocal gait on stairs Care Home Goals: (in 5 weeks) Patient will report 75% improvement in balance and strength of LLE as evidenced by reports no of falls or buckling in LE Patient will improve LEFs by 10 points Patient will demo WFL AROM of knee, hip and ankle Patient will demo proper squat and lift techniques without increase in pain Patient will return to work in full when medically cleared by Electronically signed by: Kristi Gramajo, PT
--- NOTE | 2023-12-02 12:53 | MHC.PT.DC ---
[facility] [place] Office [place] Office [place] Office [address] Doreen Dyer [address] [phone] F: [phone] F: [phone] F: [phone] F: [phone] Physical Therapy Discharge Report Diagnosis: This is a 48 yo female presenting to skilled PT with a script for R knee pain. Date of Surgery: Date of Evaluation: 08/30/23 Date of Discharge: 12/02/23 Treatments to Date: 17 Cancellations to Date: 0 No Shows to Date: 0 Discharge Status: Achieved Goals Improved Function Independent with HEP Discharge Summary: Patient has returned to work in full. Demos good ROM, strength, gait and pain management. She has an HEP to continue on her own. DC to HEP. Electronically signed by: Kristi Gramajo PT Please sign and return to therapist. Thank you for your referral.
== END 2023-12-02 12:53 | disposition home or self-care (01) ==
LOC: HO.PTCHIC 11:00
PROVIDERS: PCP Family Medicine; Visit Provider Family Medicine
DX: M25.561 Pain in right knee (principal)
CPT/HCPCS: 97110; 97140; 97162; 97164; 97530

== ENCOUNTER 2023-11-24 14:16 | Outpatient (AMB) | payer OTHER, BC, SELFPAY ==
--- NOTE | 2023-11-24 14:24 | A.OFFVIS_ITS ---
Intake Vital Signs 11/24/23 14:27 Height 5 ft 6 in Weight 255 lb BMI 41.2 Intake Visit Reasons: ov- right knee pain Intake Note: Marylin a 48 year old female presents today for a follow up of right knee. Patient report she has had improvement in pain since her last visit. She has mild pain that gets worse with walking, stating her job requires her to do prolong walking. Allergies No Known Allergies Allergy (Verified 11/24/23 14:28) HPI ov- right knee pain HPI Details 48-year-old female who returns to the [facility] today for a follow-up of right knee pain. She reports she has improvement in her pain since the last visit however she does c/o mild pain in her knee. Her pain is aggravated with ambulation and she states her job requires her to do prolonged walking. She had an injection in the past which provided her relief. She has no other concerns today. [facility] Medical History Bleeding hemorrhoids Herpes Obese Bunion of right foot Knee pain, left Annual physical exam Dysplastic nevi History of broken nose Surgical History History of foot surgery History of tonsillectomy Family History Mother No problems noted. 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 Alcohol intake: never Patient Tobacco Use Status: Former Tobacco user e-Cigarette/Vaping Use: Never Used Second Hand Smoke Exposure: No service: No Current occupational status: unemployed Current occupational exposures/hazards: No Cognitive needs: No Hearing needs: No Vision needs: No Review of Systems Const All systems reviewed & are unremarkable except as noted in HPI and below Physical Exam Vital Signs: BMI result Body Mass Index 41.2 Const General: cooperative, healthy appearing, comfortable, no acute distress, well developed and alert Orientation/consciousness: patient oriented x3 HEENT Head: Yes normal to inspection, Yes normocephalic and Yes atraumatic Eyes General: appearance normal, both eyes and all related structures Resp Effort & Inspection: normal respiratory effort and able to speak in complete sentences Cardio Rate: regular rate Peripheral pulses: Peripheral pulses 2+ throughout GI Palpation (GI): Soft to palpation Skin Lesions: no lesions Rashes: no rashes Neuro General: patient oriented x3 Extrem Other: Right knee: Skin intact, no erythema or joint effusion. MIld retropatella tenderness. Full ROM with crepitus. Negative Carol?s. No ligamentous laxity. NVI. Assessment & Plan Assessment & Plan (1) Patellofemoral arthritis of right knee: Code(s): M17.11 - Unilateral primary osteoarthritis, right knee (2) Contusion of right knee: Code(s): S80.01XA - Contusion of right knee, initial encounter Qualifiers: Encounter type: initial encounter Qualified Code(s): S80.01XA - Contusion of right knee, initial encounter Plan She continues to improve with daily activities and she has been working with limitations and feels she is ready to progress to full duty without restrictions which was signed off today. If symptoms persist or worsens, patient will contact the office, otherwise follow-up as needed. Patient Instructions: Scribed for Ellen Mike PA-C, by Antwan López medical secretary, on 11/24/2023 at 3:30 PM EST. I, Ellen Mike PA-C, have personally reviewed and agree with the information entered by the scribe. Coding Level of Care Code Est Pt Level 3 (86770) Diagnoses Patellofemoral arthritis of right knee M17.11 Contusion of right knee, initial encounter S80.01XA Encounter type: initial encounter
[2023-11-24 14:27] VITALS: BMI 41.2
== END 2023-11-24 14:50 | disposition home or self-care (01) ==
PROVIDERS: PCP Family Medicine; Visit Provider Physician Assistant
DX: M17.11 Unilateral primary osteoarthritis, right knee (principal); S80.01XA Contusion of right knee, initial encounter
CPT/HCPCS: 99213

== ENCOUNTER → 2023-11-24 14:16 | Outpatient (BNVA) | payer OTHER, BC, SELFPAY | PROVIDERS: PCP Family Medicine; Visit Provider Physician Assistant | DX: M17.11 Unilateral primary osteoarthritis, right knee (principal); S80.01XA Contusion of right knee, initial encounter | CPT/HCPCS: 99212 ==

== ENCOUNTER 2024-02-18 10:58 | Outpatient (REF) | payer OTHER, BC, SELFPAY ==
[2024-02-18 14:27] LABS: MANUAL DIFF FLAG NO
[2024-02-18 14:36] LABS: Appearance Urine Clear; Color Urine Yellow; Glucose Urine UA Negative (Negative); Leukocyte Esterase Urine Negative (Negative); Nitrite Urine Negative (Negative); Specific Gravity - Urine 1.015 (1.005-1.025); Urine Blood Negative (Negative); Urine Ketones Negative (Negative); Urine Protein Negative (Neg-Trace)
[2024-02-18 14:38] LABS: Basophils Percent Auto 0.3 % (0-2); Eosinophils Absolute Auto 0.1 X10*3/uL (0.0-0.4); Hematocrit 41.6 % (37.0-47.0); Hemoglobin 13.8 g/dl (12.0-16.0); Imm Gran Abs Auto 0.03 X10*3/uL (0.00-0.03); Imm Gran Pct Auto 0.5 % (0.0-0.4); Lymphocytes Percent Auto 33.7 % (20-40); Mean Corpuscular HGB Conc 33.2 g/dl (31.0-35.0); Mean Corpuscular Hemoglobin 31.2 pg (27.0-33.0); Mean Corpuscular Volume 93.9 fL (80.0-98.0); Mean Platelet Volume 10.6 fL (9.4-12.3); Monocytes Absolute Auto 0.4 X10*3/uL (0.1-1.2); Monocytes Percent Auto 6.4 % (2-11); Neutrophils Absolute Auto 3.5 x10*3/uL (2.0-8.3); Neutrophils Percent Auto 57.1 % (45-73); Platelet Count 264 X10*3/uL (160-400); Red Blood Count 4.43 X10*6/uL (4.20-5.50); Red Cell Distribution Width 12.4 % (11.0-16.0); White Blood Count 6.1 X10*3/uL (4.8-10.8)
[2024-02-18 15:27] LABS: Creatinine Urine 93.06 mg/dL; Microalbum/Creatinine Ratio Ur 6.4 ug/mg cr (<30)
[2024-02-18 15:31] LABS: Alanine Aminotransferase 46 U/L (0-31); Albumin Level 4.2 g/dL (3.5-5.0); Alkaline Phosphatase 113 U/L (39-117); Anion Gap 14 (12-20); Aspartate Amino Transferase 31 U/L (5-31); Bilirubin Total 0.4 mg/dL (0.0-1.0); Blood Urea Nitrogen 8 mg/dL (9-16); Calcium 9.4 mg/dL (8.4-10.2); Carbon Dioxide 22 mmol/L (22-29); Chloride 109 mmol/L (96-108); Cholesterol 180 mg/dL (<200); Estimated Glomerular Filt Rate > 60; Glucose Fasting 107 mg/dL (60-99); HDL Cholesterol 51 mg/dL (>40); LDL Cholesterol Calculated 114 mg/dL (<100); Potassium 4.2 mmol/L (3.3-5.1); Sodium 141 mmol/L (135-145); Total Protein 7.3 g/dL (6.5-8.0); Triglycerides 76 mg/dL (<150)
[2024-02-18 15:33] LABS: TSH reflex Free T4 1.61 uIU/mL (0.32-4.0)
== END 2024-02-18 10:59 | disposition home or self-care (01) ==
LOC: HO.WFDLDS 10:58
PROVIDERS: Visit Provider Family Medicine
DX: Z00.00 Encounter for general adult medical examination without abnormal findings (principal); I10 Essential (primary) hypertension
CPT/HCPCS: 36415; 80053; 80061; 81003; 82043; 82570; 84443; 85025

== ENCOUNTER 2025-05-11 11:42 | Outpatient (AMB) | payer BC, SELFPAY ==
--- NOTE | 2025-05-11 12:00 | MHC.PC.OV ---
Vital Signs 05/11/25 12:09 Height 5 ft 6 in Weight 259 lb 6 oz BMI 41.9 BP 136/80 Blood Pressure Location Rt brachial Position Sitting Respiration 14 Pulse 73 Pulse Source Pulse Oximeter Temp 98.1 F Temp Source Oral Pulse Oximetry (%) 97 Oxygen Delivery Method Room Air Intake Visit Reasons: Referral for Derm. Intake Note: patient is scheduled for fmla paperwork, patient would like to get tested for insulin resistant and blurred vision Magnetic Tape Winder Required: No Allergies No Known Allergies Allergy (Verified 05/11/25 12:05) Medication List - Last Reconciled 05/11/25 by Avila Gray MD fluticasone propionate 50 mcg/actuation (Flonase Allergy Relief) 1 spray intranasal Q12H 30 days ibuprofen 600 mg PO Q6H PRN Tobacco use date assessed: 09/06/23 Dental Screening Dental Screen Date: 09/23/23 HPI Referral for Derm. HPI Details 49 y/o female presents for FMLA paperwork. Has complaints of blurry vision. Pt notes vision is clear at distance. She reports she has been concerned about her blood sugars. A1c today 6.5%. Has had elevated FBS in the past. [facility] Medical History Bleeding hemorrhoids Herpes Obese Bunion of right foot Knee pain, left Annual physical exam Dysplastic nevi History of broken nose Surgical History History of foot surgery History of tonsillectomy Family History Mother No problems noted. 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 1. Little interest or pleasure in doing things: not at all 2. Feeling down, depressed, or hopeless: not at all 3. Trouble falling or staying asleep, or sleeping too much: not at all 4. Feeling tired or having little energy: several days 5. Poor appetite or overeating: not at all 6. Feeling bad about yourself - or that you are a failure or have let yourself or your family down: not at all 7. Trouble concentrating on things, such as reading the newspaper or watching television: not at all 8. Moving or speaking so slowly that other people could have noticed. Or the opposite - being so fidgety or restless that you have been moving around a lot more than usual: not at all 9. Thoughts that you would be better off or of hurting yourself in some way: not at all Total score: 1 Source: Developed by Drs. Dylan Cole, Kristen Correa, Eloy Hamilton and colleagues, with an educational jo from [employer]. Thrive Questionnaire Date Thrive assessed: 05/11/25 I am a: Patient What is your living situation today?: I have a steady place to live Within the past 12 months, did the food you bought not last and you didn't have the money to get more?: Never true Within the past 12 months, did you worry whether your food would run out before you got money to buy more?: Never true Do you have trouble paying for medicines?: No Do you have trouble getting transportation to medical appointments?: No Do you have trouble paying your heating and electricity bill?: Yes Do you have trouble taking care of your child, family member or friend?: No Do you have trouble with day-to-day activities such as bathing, preparing meals, shopping, managing finances, etc.?: No Are you currently unemployed and looking for a job?: No Are you interested in more education?: No Please select the resources that you would like help with: None Currently or been in a relationship where the following occur: No concerns reported THRIVE Score: 1 AUDIT C Alcohol Use Questionnaire (AUDIT-C) 1. How often do you have a drink containing alcohol?: Never 3. How often do you have six or more drinks on one occasion?: Never Total Score: 0 LISSET-7 AMB Questionnaire LISSET-7 Date LISSET - 7 assessed: 12/23/22 Feeling nervous, anxious, or on edge: 0 = Not at all Not being able to stop or control worryin = Not at all Worrying too much about different things: 0 = Not at all Trouble relaxin = Not at all Being so restless that it is hard to sit still: 0 = Not at all Becoming easily annoyed or irritable: 0 = Not at all Feeling afraid as if something awful might happen: 0 = Not at all Total LISSET-7 score (0-4 normal; 5-9 mild; 10-14 moderate; 15-21 severe): 0 Source: Developed by Drs. Dylan Cole, Kristen Correa, Eloy Hamilton and colleagues, with an educational jo from [employer]. Review of Systems Const Denies chills, Denies fatigue, Denies fever(s), Denies headache(s) and Denies weakness ENT Denies dizziness and Denies headache(s) Card Denies dyspnea Resp Denies cough, Denies dyspnea, Denies wheezing and Denies other (shortness of breath) Musc Denies numbness and Denies tingling Neuro Denies dizziness, Denies headache(s), Denies numbness, Denies tingling and Denies weakness Psych Denies anxiety and Denies depression Endo Denies fatigue Aller/Immun Denies wheezing Physical exam (Primary Care) Vital Signs: Last Vital Signs Temp 98.1 F 05/11/25 12:09 Pulse 73 05/11/25 12:09 Resp 14 05/11/25 12:09 BP 136/80 05/11/25 12:09 Pulse Ox 97 05/11/25 12:09 Oxygen Delivery Method Room Air 05/11/25 12:09 BMI result Body Mass Index 41.9 Tobacco/Smoking Status: Tobacco use Status Tobacco use date assessed 09/06/23 05/11/25 12:06 Patient Tobacco Use Status Former Tobacco user 05/11/25 12:06 e-Cigarette/Vaping Use Never Used 05/11/25 12:06 PHQ-9: PHQ-9 Score PHQ-9: Total score 1 05/11/25 12:06 Thrive Assessment: Date of Thrive Assessment Date Thrive assessed 05/11/25 05/11/25 12:06 Currently or been in a relationship where the following occur: No concerns reported Const General: well developed; No acute distress Nutritional Appearance: obese morbidly obese Orientation/consciousness: patient oriented x3 HENWV Head: Yes normocephalic and Yes atraumatic Eyes General: appearance normal, both eyes and all related structures Pupils: Equal, round and reactive pupils present EOM: EOMs intact bilaterally Resp Effort & Inspection: normal respiratory effort Neuro General: patient oriented x3 and gait normal Cranial nerves: Yes Equal, round and reactive pupils present Psych Affect: normal affect Coding Level of Care Code Est Pt Level 4 (97182) Diagnoses Diabetes E11.9 Blurry vision H53.8 Hordeolum of right eye H00.013 Heavy periods N92.0 Pelvic pain R10.2 Fibroid D21.9 Assessment & Plan Assessment & Plan (1) Diabetes: Code(s): E11.9 - Type 2 diabetes mellitus without complications Category: Medical Plan: A1c 6.5%. New diagnosis of early diabetes. Will start metformin 250 mg daily. Take with food. Encouraged diet low in sugars and starches Encouraged weight loss Will refer to the nurse navigator for diabetic teaching Will refer to ophthalmology (2) Blurry vision: Code(s): H53.8 - Other visual disturbances Category: Medical Plan: Patient notes some blurry vision but vision is clear at distance Doubt this is due to blood sugar issues. Patient is referred to ophthalmology for the above new diagnosis of diabetes however. (3) Hordeolum of right eye: Code(s): H00.013 - Hordeolum externum right eye, unspecified eyelid Category: Medical Plan: Will give her a script for erythromycin ointment (4) Heavy periods: Code(s): N92.0 - Excessive and frequent menstruation with regular cycle Category: Medical (5) Pelvic pain: Code(s): R10.2 - Pelvic and perineal pain Category: Medical (6) Fibroid: Code(s): D21.9 - Benign neoplasm of connective and other soft tissue, unspecified Category: Medical Plan Ongoing abdomen and pelvic pain in patient with history of fibroid and heavy periods. Patient gets incapacitating pain during menses at other times cycle. F[place]. Referring her to a new obstetrician and gynaecologist Orders: Referrals Ophthalmology Referral E11.9 - Type 2 diabetes mellitus without complications ENGINE GENERATOR ASSEMBLER Referral D21.9 - Benign neoplasm of connective and other soft tissue, unspecified, N92.0 - Excessive and frequent menstruation with regular cycle, R10.9 - Unspecified abdominal pain Nurse Navigator Referral E11.9 - Type 2 diabetes mellitus without complications Medications: New erythromycin 0.5 inches ophthalmic (eye) TID 3.5 grams 0RF 7 days metformin 250 mg (1/2 x 500 mg) PO DAILY 45 tabs 2RF 90 days
[2025-05-11 12:09] VITALS: BP 136/80; PULSE 73; RESP 14; TEMP 36.7; O2SAT 97; BMI 41.9
== END 2025-05-11 13:02 | disposition home or self-care (01) ==
LOC: HO.HMCFM 11:43
PROVIDERS: PCP Family Medicine; Visit Provider Family Medicine
DX: E11.9 Type 2 diabetes mellitus without complications (principal); H53.8 Other visual disturbances; H00.013 Hordeolum externum right eye, unspecified eyelid; N92.0 Excessive and frequent menstruation with regular cycle; R10.2 Pelvic and perineal pain; D21.9 Benign neoplasm of connective and other soft tissue, unspecified

== ENCOUNTER 2025-06-19 14:39 | Outpatient (AMB) | payer BC, SELFPAY ==
--- NOTE | 2025-06-19 14:44 | MHC.PC.OV ---
Vital Signs 06/19/25 14:47 Height 5 ft 6 in Weight 251 lb 4 oz BMI 40.5 BP 126/74 Blood Pressure Location Rt brachial Position Sitting Respiration 14 Pulse 86 Pulse Source Pulse Oximeter Temp 98.2 F Temp Source Temporal Artery Scan Pulse Oximetry (%) 96 Oxygen Delivery Method Room Air Intake Visit Reasons: f/u diabetes Intake Note: Marylin presents in the office today for a follow up to diabetes. Patient needs a refill of the flonase and ibuprofen. Allergies No Known Allergies Allergy (Verified 06/19/25 14:44) Medication List - Last Reconciled 06/19/25 by Avila Gray MD fluticasone propionate 50 mcg/actuation (Flonase Allergy Relief) 1 spray intranasal Q12H 30 days ibuprofen 600 mg PO Q6H PRN metformin 250 mg (1/2 x 500 mg) PO DAILY 90 days Tobacco use date assessed: 06/19/25 Dental Screening Dental Screen Date: 06/19/25 Did you have a dental visit in the last 12 months?: No Did you have a dental problem in the last 6 months where you did not have access to dental care?: No Was dental information given to patient?: Patient declined HPI f/u diabetes HPI Details 50 y/o female presents to f/u diabetes. Last A1c 6.5%. A1c today 06/19/25 7.0%. She is on metformin 250mg daily. Complaints of skin rashes on her forearms. She notes rash started a few days after taking metformin. HPI Comments History of Present Illness Details Documentation assistance for Avila Gray MD, was provided by Morgan Mcwilliams,? Mirror Specialist on at 3:20 PM MANISH. I, Dr. Gray, have read, observed, and verified documentation. ? PFSH Medical History Bleeding hemorrhoids Herpes Obese Bunion of right foot Knee pain, left Annual physical exam Dysplastic nevi History of broken nose Surgical History History of foot surgery History of tonsillectomy Family History (Updated 06/19/25 @ 14:47 by Erika Ruiz MA) Mother No problems noted. 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 Alcohol intake: never Patient Tobacco Use Status: Former Tobacco user e-Cigarette/Vaping Use: Never Used Second Hand Smoke Exposure: No Use of substances other than those prescribed or required for medical reasons: No service: No Current occupational status: unemployed Current occupational exposures/hazards: No Cognitive needs: No Hearing needs: No Vision needs: No Questionnaire Thrive Questionnaire Date Thrive assessed: 05/11/25 I am a: Patient What is your living situation today?: I have a steady place to live Within the past 12 months, did the food you bought not last and you didn't have the money to get more?: Never true Within the past 12 months, did you worry whether your food would run out before you got money to buy more?: Never true Do you have trouble paying for medicines?: No Do you have trouble getting transportation to medical appointments?: No Do you have trouble paying your heating and electricity bill?: Yes Do you have trouble taking care of your child, family member or friend?: No Do you have trouble with day-to-day activities such as bathing, preparing meals, shopping, managing finances, etc.?: No Are you currently unemployed and looking for a job?: No Are you interested in more education?: No Please select the resources that you would like help with: None Currently or been in a relationship where the following occur: No concerns reported THRIVE Score: 1 AUDIT C Alcohol Use Questionnaire (AUDIT-C) 2. How many drinks containing alcohol do you have on a typical day when you are drinking?: 1 or 2 Total Score: 0 LISSET-7 AMB Questionnaire LISSET-7 Date LISSET - 7 assessed: 12/23/22 Source: Developed by Drs. Dylan Cole, Kristen Correa, Eloy Hamilton and colleagues, with an educational jo from [employer]. Review of Systems Const Denies chills, Denies fatigue, Denies fever(s), Denies headache(s) and Denies weakness ENT Denies dizziness and Denies headache(s) Card Denies dyspnea Resp Denies cough, Denies dyspnea, Denies wheezing and Denies other (shortness of breath) Musc Denies numbness and Denies tingling Skin/Breast Reports rash Neuro Denies dizziness, Denies headache(s), Denies numbness, Denies tingling and Denies weakness Psych Denies anxiety and Denies depression Endo Denies fatigue Aller/Immun Denies wheezing Physical exam (Primary Care) Vital Signs: Last Vital Signs Temp 98.2 F 06/19/25 14:47 Pulse 86 06/19/25 14:47 Resp 14 06/19/25 14:47 BP 126/74 06/19/25 14:47 Pulse Ox 96 06/19/25 14:47 Oxygen Delivery Method Room Air 06/19/25 14:47 BMI result Body Mass Index 40.5 Tobacco/Smoking Status: Tobacco use Status Tobacco use date assessed 06/19/25 06/19/25 14:50 Patient Tobacco Use Status Former Tobacco user 06/19/25 14:50 e-Cigarette/Vaping Use Never Used 06/19/25 14:50 Thrive Assessment: Date of Thrive Assessment Date Thrive assessed 05/11/25 06/19/25 14:50 Currently or been in a relationship where the following occur: No concerns reported Const General: well developed; No acute distress Nutritional Appearance: well nourished Orientation/consciousness: patient oriented x3 HENMT Head: Yes normocephalic and Yes atraumatic Eyes General: appearance normal, both eyes and all related structures Pupils: Equal, round and reactive pupils present EOM: EOMs intact bilaterally Resp Effort & Inspection: normal respiratory effort Neuro General: patient oriented x3 and gait normal Cranial nerves: Yes Equal, round and reactive pupils present Psych Affect: normal affect Results AMB Hemoglobin A1c AMB Hemoglobin A1c 7.0 % Last Edit by Erika Ruiz MA on 06/19/25 15:05 Results Reviewed Results Reviewed: Laboratory Last Values Hgb A1c (Clinic) 7.0 % (4.0-6.0) H 06/19/25 14:52 Coding Level of Care Code Est Pt Level 3 (57054) Diagnoses Diabetes E11.9 Morbid obesity with BMI of 40.0-44.9, adult E66.01; Z68.41 Rash R21 Assessment & Plan Assessment & Plan (1) Diabetes: Code(s): E11.9 - Type 2 diabetes mellitus without complications Category: Medical Plan: A1c climbed despite starting metformin She will continue this and she would like to add Mounjaro - sent She will let me know if she is unable to obtain this. We would consider another medication such as Trulicity or could use some glipizide if she is still tolerating metformin. (2) Morbid obesity with BMI of 40.0-44.9, adult: Code(s): E66.01 - Morbid (severe) obesity due to excess calories; Z68.41 - Body mass index [BMI] 40.0-44.9, adult Category: Medical Plan: As above, sending a script for Soni (3) Rash: Code(s): R21 - Rash and other nonspecific skin eruption Category: Medical Plan: Patient has rash on posterior forearms. Possible contact dermatitis. We also discussed the possible medication reaction to metformin. She will stop this medication if it is not improving worsens Orders: Orders AMB Hemoglobin A1c Today E11.9 - Type 2 diabetes mellitus without complications
[2025-06-19 14:47] VITALS: BP 126/74; PULSE 86; RESP 14; TEMP 36.8; O2SAT 96; BMI 40.5
== END 2025-06-19 15:35 | disposition home or self-care (01) ==
LOC: HO.HMCFM 14:39
PROVIDERS: PCP Family Medicine; Visit Provider Family Medicine
DX: E11.9 Type 2 diabetes mellitus without complications (principal); E66.01 Morbid (severe) obesity due to excess calories; Z68.41 Body mass index [BMI] 40.0-44.9, adult; R21 Rash and other nonspecific skin eruption

== ENCOUNTER → 2025-06-19 14:39 | Outpatient (BNVA) | payer BC, SELFPAY | PROVIDERS: PCP Family Medicine; Visit Provider Family Medicine | DX: E11.9 Type 2 diabetes mellitus without complications (principal); E66.01 Morbid (severe) obesity due to excess calories; R21 Rash and other nonspecific skin eruption; Z68.41 Body mass index [BMI] 40.0-44.9, adult | CPT/HCPCS: 83036 ==

== ENCOUNTER 2025-07-23 14:44 | Outpatient (AMB) | payer BC, SELFPAY ==
--- NOTE | 2025-07-23 14:48 | MHC.PC.OV ---
Vital Signs 07/23/25 14:51 Height 5 ft 6 in Weight 249 lb BMI 40.2 BP 132/78 Blood Pressure Location Rt brachial Position Sitting Respiration 14 Pulse 79 Pulse Source Pulse Oximeter Temp 97.8 F Temp Source Temporal Artery Scan Pulse Oximetry (%) 97 Oxygen Delivery Method Room Air Intake Visit Reasons: f/u diabetes Intake Note: Marylin presents in the office today for a follow up to her diabetes. Allergies No Known Allergies Allergy (Verified 07/23/25 14:50) Medication List - Last Reconciled 07/23/25 by Avila Gray MD fluticasone propionate 50 mcg/actuation (Flonase Allergy Relief) 1 spray intranasal Q12H 30 days ibuprofen 600 mg PO Q6H PRN metformin 500 mg PO DAILY 90 days Tobacco use date assessed: 07/23/25 Dental Screening Dental Screen Date: 07/23/25 Did you have a dental visit in the last 12 months?: No Did you have a dental problem in the last 6 months where you did not have access to dental care?: No Was dental information given to patient?: Patient declined HPI f/u diabetes HPI Details 50 y/o female presents to f/u diabetes. Had sent star. She is also on metformin 500mg daily. Last A1c 06/19/25 7.0%. Has not been checking her blood sugars at home. [facility] Medical History Bleeding hemorrhoids Herpes Obese Bunion of right foot Knee pain, left Annual physical exam Dysplastic nevi History of broken nose Surgical History History of foot surgery History of tonsillectomy Family History Mother No problems noted. 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 Housing: House Alcohol intake: never Patient Tobacco Use Status: Former Tobacco user e-Cigarette/Vaping Use: Never Used Second Hand Smoke Exposure: No Use of substances other than those prescribed or required for medical reasons: No service: No Current occupational status: unemployed Current occupational exposures/hazards: No Cognitive needs: No Hearing needs: No Vision needs: No Questionnaire Thrive Questionnaire Date Thrive assessed: 05/11/25 I am a: Patient What is your living situation today?: I have a steady place to live Within the past 12 months, did the food you bought not last and you didn't have the money to get more?: Never true Within the past 12 months, did you worry whether your food would run out before you got money to buy more?: Never true Do you have trouble paying for medicines?: No Do you have trouble getting transportation to medical appointments?: No Do you have trouble paying your heating and electricity bill?: Yes Do you have trouble taking care of your child, family member or friend?: No Do you have trouble with day-to-day activities such as bathing, preparing meals, shopping, managing finances, etc.?: No Are you currently unemployed and looking for a job?: No Are you interested in more education?: No Please select the resources that you would like help with: None Currently or been in a relationship where the following occur: No concerns reported THRIVE Score: 1 LISSET-7 AMB Questionnaire LISSET-7 Date LISSET - 7 assessed: 12/23/22 Source: Developed by Drs. Dylan Cole, Kristen Correa, Eloy Hamilton and colleagues, with an educational jo from [employer]. Review of Systems Const Denies chills, Denies fatigue, Denies fever(s), Denies headache(s) and Denies weakness ENT Denies dizziness and Denies headache(s) Card Denies dyspnea Resp Denies cough, Denies dyspnea, Denies wheezing and Denies other (shortness of breath) Musc Denies numbness and Denies tingling Neuro Denies dizziness, Denies headache(s), Denies numbness, Denies tingling and Denies weakness Psych Denies anxiety and Denies depression Endo Denies fatigue Aller/Immun Denies wheezing Physical exam (Primary Care) Vital Signs: Last Vital Signs Temp 97.8 F 07/23/25 14:51 Pulse 79 07/23/25 14:51 Resp 14 07/23/25 14:51 BP 132/78 07/23/25 14:51 Pulse Ox 97 07/23/25 14:51 Oxygen Delivery Method Room Air 07/23/25 14:51 BMI result Body Mass Index 40.2 Tobacco/Smoking Status: Tobacco use Status Tobacco use date assessed 07/23/25 07/23/25 14:55 Patient Tobacco Use Status Former Tobacco user 07/23/25 14:51 e-Cigarette/Vaping Use Never Used 07/23/25 14:51 Thrive Assessment: Date of Thrive Assessment Date Thrive assessed 05/11/25 07/23/25 14:50 Currently or been in a relationship where the following occur: No concerns reported Const General: well developed; No acute distress Nutritional Appearance: well nourished Orientation/consciousness: patient oriented x3 HENMT Head: Yes normocephalic and Yes atraumatic Eyes General: appearance normal, both eyes and all related structures Pupils: Equal, round and reactive pupils present EOM: EOMs intact bilaterally Resp Effort & Inspection: normal respiratory effort Neuro General: patient oriented x3 and gait normal Cranial nerves: Yes Equal, round and reactive pupils present Psych Affect: normal affect Coding Level of Care Code Est Pt Level 3 (26111) Diagnoses Diabetes E11.9 Rash R21 Morbid obesity with BMI of 40.0-44.9, adult E66.01; Z68.41 Assessment & Plan Assessment & Plan (1) Diabetes: Code(s): E11.9 - Type 2 diabetes mellitus without complications Category: Medical Plan: Patient kept up with her metformin and is tolerating this and 500 mg daily She is also working on weight loss and has lost few lb She would like to try Mounjaro - script sent today (2) Rash: Code(s): R21 - Rash and other nonspecific skin eruption Category: Medical Plan: This resolved (3) Morbid obesity with BMI of 40.0-44.9, adult: Code(s): E66.01 - Morbid (severe) obesity due to excess calories; Z68.41 - Body mass index [BMI] 40.0-44.9, adult Category: Medical Plan: As above, script sent for Mounjaro Medications: New tirzepatide (Mounjaro) for 4 weeks 2.5 mg (0.5 mL) subcut QWEEK 28 days 2 mL 4RF E11.9 - Type 2 diabetes mellitus without complications, E66.01 - Morbid (severe) obesity due to excess calories, Z68.41 - Body mass index [BMI] 40.0-44.9, adult tirzepatide (Mounjaro) for 4 weeks 2.5 mg (0.5 mL) subcut QWEEK 2 mL 4RF 28 days E11.9 - Type 2 diabetes mellitus without complications, E66.01 - Morbid (severe) obesity due to excess calories, Z68.41 - Body mass index [BMI] 40.0-44.9, adult
[2025-07-23 14:51] VITALS: BP 132/78; PULSE 79; RESP 14; TEMP 36.6; O2SAT 97; BMI 40.2
== END 2025-07-23 15:18 | disposition home or self-care (01) ==
LOC: HO.HMCFM 14:45
PROVIDERS: PCP Family Medicine; Visit Provider Family Medicine
DX: E11.9 Type 2 diabetes mellitus without complications (principal); R21 Rash and other nonspecific skin eruption; E66.01 Morbid (severe) obesity due to excess calories; Z68.41 Body mass index [BMI] 40.0-44.9, adult

== ENCOUNTER 2025-09-14 09:23 | Outpatient (AMB) | payer BC, SELFPAY ==
--- NOTE | 2025-09-14 09:23 | MHC.OFFVIS ---
Vital Signs 09/14/25 09:30 Height 5 ft 6 in Weight 240 lb BMI 38.7 BP 128/88 Intake Visit Reasons: New patient /Excessive Frequent Menses Intake Note: Patient has concerns of 1 episode a month of pelvic pain due to fibroids. Las pap smear 5+ years ago, normal hx. Weaving Inspector: Weaving Inspector Present (Brigida) Accompanied by: Self / Same As Patient Allergies No Known Allergies Allergy (Verified 09/14/25 09:29) Is last menstrual period known: Yes (2 years ago) Post menopausal: Yes Patient : No HPI HPI New patient /Excessive Frequent Menses: Details: Patient is here is a new patient for an in-house referral for heavy bleeding fibroids and pelvic abdominal pain. Actually she has not had a period in 2 years she says she is referred somewhere in the [employer] system a couple of years ago and had some exam and she was told she had fibroids. She does not remember who she saw there no records of any press department manager visits in the system in the last 5 years that I can find. She is diabetic she is on metformin and just recently increased the dose she is on Mounjaro for 2 months and she feels she is noticing a beneficial effect and has lost 12 lb and feels good about it. 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 She is a vegetarian and that has post challenges she has had ethical concerns about eating animal and animal productst. She is trying to do some really thinking of how she sees things and she has been doing a lot of research and beginning to understand how carbs turned to sugar. She is wondering about hormone replacement therapy she has been noticing vaginal dryness and that things are appearing different and this is really bothersome to her. She said the last time she checked her sugar it was in the 200s she is still getting used to the machine. She has an appointment with her primary care provider next week. [facility] Medical History Bleeding hemorrhoids Herpes Obese Bunion of right foot Knee pain, left Annual physical exam Dysplastic nevi History of broken nose Surgical History History of foot surgery History of tonsillectomy Family History Mother No problems noted. 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 Current occupational exposures/hazards: No Cognitive needs: No Hearing needs: No Vision needs: No Female Reproductive History Menstrual Age of Menarche: 12 control method: none Total pregnancies: 4 Full term: 1 History of abnormal pap smear: No Physical Exam Vital Signs: Last Vital Signs BP 128/88 09/14/25 09:30 BMI result Body Mass Index 38.7 Const General: healthy appearing, comfortable, no acute distress, well developed and alert Nutritional Appearance: average body habitus Orientation/consciousness: patient oriented x3 Limitations: no limitations HEENT Head: Yes normocephalic Neck Neck: Yes normal visual inspection Chest Chest palpation & inspection: normal inspection of the chest Breast/axilla inspection: normal inspection of the breasts and normal inspection of the axillae Breast/axilla palpation: normal palpation of the breasts and normal palpation of the axillae Resp Effort & Inspection: normal respiratory effort GI Inspection: Yes normal to inspection, No Abdominal wall edema and No distended Palpation (GI): Soft to palpation and nontender Other: External exam within normal limits some mild maximilian menopausal changes noted but not extreme vagina is pink and moist but shows some signs of atrophic changes cervix nulliparous appearing pink healthy appearing long close thick mobile nontender uterus midposition mobile nontender adnexa nonenlarged nontender good tone with Kegel. General: Yes bladder normal to palpation External Female Exam: normal external appearance and normal appearance of the urethra Speculum Exam - Vagina: normal appearance of the vagina, normal palpation and normal vaginal discharge Speculum Exam - Cervix: normal appearance of the cervix, normal palpation and nontender Bimanual exam- vagina & uterus: normal bimanual exam, normal palpation, uterine size normal, bladder normal to palpation, consistency normal, normal palpation, uterine mobility normal, uterine shape normal, No Cervical tenderness present, non-tender and no cervical motion tenderness Bimanual Exam- Adnexa, other: normal adnexae, no masses, normal and No adnexal tenderness Neuro General: patient oriented x3 Results Reviewed Results Reviewed: Patient: Marylin Myles MR#: [id number] : 1975 Acct:[id number] Age/Sex: 46 / F ADM Date: 05/01/22 Loc: HO.HMGCX Attending Dr: Avila Gray MD Ordering Physician: Avila Gray MD Date of Service: 05/01/22 Procedure(s): US pelvic and transvaginal Accession Number(s): [id number] cc: Avila Gray MD~ EXAMINATION: US PELVIS COMPLETE CLINICAL INFORMATION: Pelvic and perineal pain; the last menstrual period was 9 months prior. COMPARISON: None. TECHNIQUE: Transabdominal and transvaginal imaging were performed. FINDINGS: The uterus is of normal size and echogenicity measuring 7.7 x 4.7 x 5.2 cm. The uterus is anteverted and anteflexed. A regular homogeneous endometrium is identified measuring 0.5 cm. Nabothian cysts are seen within the cervix. FIBROIDS: There are 3 fibroids seen. 1. Location: Posterior body, myometrial. Size: 0.6 x 0.6 x 0.8 cm. Fibroid characteristics: Heterogeneously hypoechoic. 2. Location: Anterior upper body, myometrial. Size: 2.2 x 1.8 x 1.8 cm. Fibroid characteristics: Heterogeneously hypoechoic. 3. Location: Anterior body, subendometrial. Size: 1.0 x 1.2 x 1.3 cm. Fibroid characteristics: Heterogeneous hyperechoic. Both ovaries are of normal size and echogenicity. The right measures 2.2 x 9.3 x 2.9 cm for a volume of 3.1 mL. The left measures 3.3 x 1.9 x 2.1 cm for a volume of 6.8 mL. There is no pelvic free fluid. No adnexal masses seen. US/US pelvic and transvaginal IMPRESSION: 1. There are uterine fibroids, as detailed. 2. Nabothian cysts are seen within the cervix. Dictated By: Rupert Ritter MD Signed By: <Electronically signed by Rupert Ritter MD in OV> 05/05/22 1152 DD/ 1530 TD/TT: Car Tester: HAYDE Assessment & Plan Assessment & Plan (1) Fibroid: Code(s): D21.9 - Benign neoplasm of connective and other soft tissue, unspecified Category: Medical (2) Morbid obesity with BMI of 40.0-44.9, adult: Code(s): E66.01 - Morbid (severe) obesity due to excess calories; Z68.41 - Body mass index [BMI] 40.0-44.9, adult Category: Medical (3) Diabetes: Code(s): E11.9 - Type 2 diabetes mellitus without complications Category: Medical (4) H/O amenorrhea: Code(s): Z87.42 - Personal history of other diseases of the female genital tract Category: Medical (5) Perimenopausal symptoms: Code(s): N95.1 - Menopausal and female climacteric states Category: Medical (6) History of vaginal pruritus: Code(s): Z87.42 - Personal history of other diseases of the female genital tract Category: Medical (7) Vaginal dryness: Code(s): N89.8 - Other specified noninflammatory disorders of vagina Category: Medical (8) Amenorrhea, unspecified: Code(s): N91.2 - Amenorrhea, unspecified Category: Medical (9) Breast cancer screening: Code(s): Z12.39 - Encounter for other screening for malignant neoplasm of breast Category: Medical (10) Encounter for screening examination for sexually transmitted disease: Code(s): Z11.3 - Encounter for screening for infections with a predominantly sexual mode of transmission Category: Medical (11) Papanicolaou smear for cervical cancer screening: Code(s): Z12.4 - Encounter for screening for malignant neoplasm of cervix Category: Medical Plan -----Discussed in this visit the following: healthy balanced diet, regular and consistent exercise, getting recommended health screens, doing the best she can for her particular health concerns, kegel exercises, pap smear screening and followup recommendations, mammography screening and SBE, normal changes in cycles in her life stage--- . Patient was scheduled as a consultation for fibroids bleeding and pelvic pain however her symptoms were different from this and she has not had a press department manager visit in many years and they are non in the system. She believes her last Pap smear was over 5 years ago. So we discussed many things and try to cover many bases in this visit I did Pap smear and I did testing for STIs as her last contact was 2 years ago I offered her blood work for STIs I screening as well and she accepted those. I am ordering a pelvic ultrasound to assess the fibroids that were previously noted and also the endometrial lining and see if there is anything else notable I discussed ordering blood work for hormone evaluation to see if she is in the maximilian menopausal range or what other things might be going on. I am also ordering her screening mammogram as she has not had 1 of those in many years.. She will be seeing her primary care provider next week and I recommend she get all of her blood work done at the same time and ask him if she needs any other blood work then review all her labs with him that he has done. I encouraged her to think about how she can augment her protein intake in a way that meets her needs, and that improves her dietary intake discussed vegetables as well We will see her after the lab work and after the ultrasound to follow-up I am ordering Monistat cream for her that she can use PRN for vaginal itching there did not appear to be a very obvious yeast infection today however if she maintains blood sugars in the 200s it would be understandable that that maybe an affliction she encounters Discussed that I am may consider prescription of vaginal estrogen cream but only after all concern for any risk of pathology is ruled out. Orders: Orders MM tomosynthesis screening BI Today Z12.31 - Encounter for screening mammogram for malignant neoplasm of breast, Z12.39 - Encounter for other screening for malignant neoplasm of breast Follicle Stimulating Hormone Today D21.9 - Benign neoplasm of connective and other soft tissue, unspecified, E11.9 - Type 2 diabetes mellitus without complications, E66.01 - Morbid (severe) obesity due to excess calories, N89.8 - Other specified noninflammatory disorders of vagina, N91.2 - Amenorrhea, unspecified, N95.1 - Menopausal and female climacteric states, Z11.3 - Encounter for screening for infections with a predominantly sexual mode of transmission, Z12.39 - Encounter for other screening for malignant neoplasm of breast, Z12.4 - Encounter for screening for malignant neoplasm of cervix, Z68.41 - Body mass index [BMI] 40.0-44.9, adult, Z87.42 - Personal history of other diseases of the female genital tract DHEA Sulfate Today D21.9 - Benign neoplasm of connective and other soft tissue, unspecified, E11.9 - Type 2 diabetes mellitus without complications, E66.01 - Morbid (severe) obesity due to excess calories, N89.8 - Other specified noninflammatory disorders of vagina, N91.2 - Amenorrhea, unspecified, N95.1 - Menopausal and female climacteric states, Z11.3 - Encounter for screening for infections with a predominantly sexual mode of transmission, Z12.39 - Encounter for other screening for malignant neoplasm of breast, Z12.4 - Encounter for screening for malignant neoplasm of cervix, Z68.41 - Body mass index [BMI] 40.0-44.9, adult, Z87.42 - Personal history of other diseases of the female genital tract US pelvic and transvaginal Today D21.9 - Benign neoplasm of connective and other soft tissue, unspecified, E11.9 - Type 2 diabetes mellitus without complications, E66.01 - Morbid (severe) obesity due to excess calories, N89.8 - Other specified noninflammatory disorders of vagina, N91.2 - Amenorrhea, unspecified, N95.1 - Menopausal and female climacteric states, Z68.41 - Body mass index [BMI] 40.0-44.9, adult, Z87.42 - Personal history of other diseases of the female genital tract Testosterone, Free/Total Today D21.9 - Benign neoplasm of connective and other soft tissue, unspecified, E11.9 - Type 2 diabetes mellitus without complications, E66.01 - Morbid (severe) obesity due to excess calories, N89.8 - Other specified noninflammatory disorders of vagina, N91.2 - Amenorrhea, unspecified, N95.1 - Menopausal and female climacteric states, Z11.3 - Encounter for screening for infections with a predominantly sexual mode of transmission, Z12.39 - Encounter for other screening for malignant neoplasm of breast, Z12.4 - Encounter for screening for malignant neoplasm of cervix, Z68.41 - Body mass index [BMI] 40.0-44.9, adult, Z87.42 - Personal history of other diseases of the female genital tract Lutenizing Hormone Today D21.9 - Benign neoplasm of connective and other soft tissue, unspecified, E11.9 - Type 2 diabetes mellitus without complications, E66.01 - Morbid (severe) obesity due to excess calories, N89.8 - Other specified noninflammatory disorders of vagina, N91.2 - Amenorrhea, unspecified, N95.1 - Menopausal and female climacteric states, Z11.3 - Encounter for screening for infections with a predominantly sexual mode of transmission, Z12.39 - Encounter for other screening for malignant neoplasm of breast, Z12.4 - Encounter for screening for malignant neoplasm of cervix, Z68.41 - Body mass index [BMI] 40.0-44.9, adult, Z87.42 - Personal history of other diseases of the female genital tract Estrad Free (Tot Ultra + Free) Today D21.9 - Benign neoplasm of connective and other soft tissue, unspecified, E11.9 - Type 2 diabetes mellitus without complications, E66.01 - Morbid (severe) obesity due to excess calories, N89.8 - Other specified noninflammatory disorders of vagina, N91.2 - Amenorrhea, unspecified, N95.1 - Menopausal and female climacteric states, Z11.3 - Encounter for screening for infections with a predominantly sexual mode of transmission, Z12.39 - Encounter for other screening for malignant neoplasm of breast, Z12.4 - Encounter for screening for malignant neoplasm of cervix, Z68.41 - Body mass index [BMI] 40.0-44.9, adult, Z87.42 - Personal history of other diseases of the female genital tract Prolactin Today D21.9 - Benign neoplasm of connective and other soft tissue, unspecified, E11.9 - Type 2 diabetes mellitus without complications, E66.01 - Morbid (severe) obesity due to excess calories, N89.8 - Other specified noninflammatory disorders of vagina, N91.2 - Amenorrhea, unspecified, N95.1 - Menopausal and female climacteric states, Z11.3 - Encounter for screening for infections with a predominantly sexual mode of transmission, Z12.39 - Encounter for other screening for malignant neoplasm of breast, Z12.4 - Encounter for screening for malignant neoplasm of cervix, Z68.41 - Body mass index [BMI] 40.0-44.9, adult, Z87.42 - Personal history of other diseases of the female genital tract Free T4 (Free Thyroxine) Today D21.9 - Benign neoplasm of connective and other soft tissue, unspecified, E11.9 - Type 2 diabetes mellitus without complications, E66.01 - Morbid (severe) obesity due to excess calories, N89.8 - Other specified noninflammatory disorders of vagina, N91.2 - Amenorrhea, unspecified, N95.1 - Menopausal and female climacteric states, Z11.3 - Encounter for screening for infections with a predominantly sexual mode of transmission, Z12.39 - Encounter for other screening for malignant neoplasm of breast, Z12.4 - Encounter for screening for malignant neoplasm of cervix, Z68.41 - Body mass index [BMI] 40.0-44.9, adult, Z87.42 - Personal history of other diseases of the female genital tract HCG Quantitative Today D21.9 - Benign neoplasm of connective and other soft tissue, unspecified, E11.9 - Type 2 diabetes mellitus without complications, E66.01 - Morbid (severe) obesity due to excess calories, N89.8 - Other specified noninflammatory disorders of vagina, N91.2 - Amenorrhea, unspecified, N95.1 - Menopausal and female climacteric states, Z11.3 - Encounter for screening for infections with a predominantly sexual mode of transmission, Z12.39 - Encounter for other screening for malignant neoplasm of breast, Z12.4 - Encounter for screening for malignant neoplasm of cervix, Z68.41 - Body mass index [BMI] 40.0-44.9, adult, Z87.42 - Personal history of other diseases of the female genital tract Hepatitis B Surface Antigen Today D21.9 - Benign neoplasm of connective and other soft tissue, unspecified, E11.9 - Type 2 diabetes mellitus without complications, E66.01 - Morbid (severe) obesity due to excess calories, N89.8 - Other specified noninflammatory disorders of vagina, N91.2 - Amenorrhea, unspecified, N95.1 - Menopausal and female climacteric states, Z11.3 - Encounter for screening for infections with a predominantly sexual mode of transmission, Z12.39 - Encounter for other screening for malignant neoplasm of breast, Z12.4 - Encounter for screening for malignant neoplasm of cervix, Z68.41 - Body mass index [BMI] 40.0-44.9, adult, Z87.42 - Personal history of other diseases of the female genital tract Hepatitis C Antibody Today D21.9 - Benign neoplasm of connective and other soft tissue, unspecified, E11.9 - Type 2 diabetes mellitus without complications, E66.01 - Morbid (severe) obesity due to excess calories, N89.8 - Other specified noninflammatory disorders of vagina, N91.2 - Amenorrhea, unspecified, N95.1 - Menopausal and female climacteric states, Z11.3 - Encounter for screening for infections with a predominantly sexual mode of transmission, Z12.39 - Encounter for other screening for malignant neoplasm of breast, Z12.4 - Encounter for screening for malignant neoplasm of cervix, Z68.41 - Body mass index [BMI] 40.0-44.9, adult, Z87.42 - Personal history of other diseases of the female genital tract Syphilis Screen Today D21.9 - Benign neoplasm of connective and other soft tissue, unspecified, E11.9 - Type 2 diabetes mellitus without complications, E66.01 - Morbid (severe) obesity due to excess calories, N89.8 - Other specified noninflammatory disorders of vagina, N91.2 - Amenorrhea, unspecified, N95.1 - Menopausal and female climacteric states, Z11.3 - Encounter for screening for infections with a predominantly sexual mode of transmission, Z12.39 - Encounter for other screening for malignant neoplasm of breast, Z12.4 - Encounter for screening for malignant neoplasm of cervix, Z68.41 - Body mass index [BMI] 40.0-44.9, adult, Z87.42 - Personal history of other diseases of the female genital tract HIV Ab/Ag Today D21.9 - Benign neoplasm of connective and other soft tissue, unspecified, E11.9 - Type 2 diabetes mellitus without complications, E66.01 - Morbid (severe) obesity due to excess calories, N89.8 - Other specified noninflammatory disorders of vagina, N91.2 - Amenorrhea, unspecified, N95.1 - Menopausal and female climacteric states, Z11.3 - Encounter for screening for infections with a predominantly sexual mode of transmission, Z12.39 - Encounter for other screening for malignant neoplasm of breast, Z12.4 - Encounter for screening for malignant neoplasm of cervix, Z68.41 - Body mass index [BMI] 40.0-44.9, adult, Z87.42 - Personal history of other diseases of the female genital tract Medications: New miconazole nitrate 2% (Miconazole-7) May use PRN for symptoms of yeast infection... 1 appful vaginal BEDTIME 45 grams 3RF 7 days Coding Level of Care Code New Pt Level 4 (57068) Diagnoses Fibroid D21.9 Morbid obesity with BMI of 40.0-44.9, adult E66.01; Z68.41 Diabetes E11.9 H/O amenorrhea Z87.42 Perimenopausal symptoms N95.1 History of vaginal pruritus Z87.42 Vaginal dryness N89.8 Amenorrhea, unspecified N91.2 Breast cancer screening Z12.39 Encounter for screening examination for sexually transmitted disease Z11.3 Papanicolaou smear for cervical cancer screening Z12.4
[2025-09-14 09:30] VITALS: BP 128/88; BMI 38.7
== END 2025-09-14 12:48 | disposition home or self-care (01) ==
PROVIDERS: PCP Family Medicine; Visit Provider Advanced Practice Midwife
DX: D21.9 Benign neoplasm of connective and other soft tissue, unspecified (principal); E66.01 Morbid (severe) obesity due to excess calories; Z68.41 Body mass index [BMI] 40.0-44.9, adult; E11.9 Type 2 diabetes mellitus without complications; Z87.42 Personal history of other diseases of the female genital tract; N95.1 Menopausal and female climacteric states; N89.8 Other specified noninflammatory disorders of vagina; N91.2 Amenorrhea, unspecified; Z12.39 Encounter for other screening for malignant neoplasm of breast; Z11.3 Encounter for screening for infections with a predominantly sexual mode of transmission; Z12.4 Encounter for screening for malignant neoplasm of cervix
CPT/HCPCS: 99204

== ENCOUNTER 2025-09-14 09:23 | Outpatient (REF) | payer BC, SELFPAY ==
[2025-09-15 02:47] LABS: CT PCR NOT DETECTED (Not Detect.); NG PCR NOT DETECTED (Not Detect.)
[2025-09-15 02:57] LABS: Bacterial Vaginosis PCR NEGATIVE (Negative); Candida Group PCR NOT DETECTED (Not Detect); Candida glab krusei PCR NOT DETECTED (Not Detect); Trichomonas vaginalis PCR NOT DETECTED (Not Detect)
== END 2025-09-14 09:24 | disposition home or self-care (01) ==
LOC: HO.LNP 09:23
PROVIDERS: PCP Family Medicine; Visit Provider Advanced Practice Midwife
DX: D21.9 Benign neoplasm of connective and other soft tissue, unspecified (principal); E66.01 Morbid (severe) obesity due to excess calories; Z68.41 Body mass index [BMI] 40.0-44.9, adult; E11.9 Type 2 diabetes mellitus without complications; Z87.42 Personal history of other diseases of the female genital tract; N95.1 Menopausal and female climacteric states; N89.8 Other specified noninflammatory disorders of vagina; N91.2 Amenorrhea, unspecified; Z12.39 Encounter for other screening for malignant neoplasm of breast; Z20.2 Contact with and (suspected) exposure to infections with a predominantly sexual mode of transmission; Z12.4 Encounter for screening for malignant neoplasm of cervix
CPT/HCPCS: 81515; 87491; 87591; 87626; 88175

== ENCOUNTER 2025-09-24 14:30 | Outpatient (AMB) | payer BC, SELFPAY ==
[2025-09-24 14:33] VITALS: BP 128/72; PULSE 92; O2SAT 97; BMI 39.1
--- NOTE | 2025-09-24 14:33 | MHC.PC.OV ---
Vital Signs 09/24/25 14:33 Height 5 ft 6 in Weight 242 lb 4 oz BMI 39.1 BP 128/72 Blood Pressure Location Rt brachial Position Sitting Pulse 92 Pulse Source Pulse Oximeter Pulse Oximetry (%) 97 Oxygen Delivery Method Room Air Intake Visit Reasons: f/u diabetes Allergies No Known Allergies Allergy (Verified 09/24/25 14:36) Medication List - Last Reconciled 09/24/25 by Avila Gray MD fluticasone propionate 50 mcg/actuation (Flonase Allergy Relief) 1 spray intranasal Q12H 30 days ibuprofen 600 mg PO Q6H PRN metformin 500 mg PO DAILY 90 days miconazole nitrate 2% (Miconazole-7) 1 appful vaginal BEDTIME 7 days tirzepatide (Mounjaro) 2.5 mg (0.5 mL) subcut QWEEK 28 days Tobacco use date assessed: 09/24/25 Dental Screening Dental Screen Date: 09/24/25 Did you have a dental visit in the last 12 months?: No Did you have a dental problem in the last 6 months where you did not have access to dental care?: No Was dental information given to patient?: No HPI f/u diabetes HPI Details 50 y/o female presents to f/u diabetes. Last A1c 06/19/25 7.0%. A1c today 09/24/25 5.7%. She is on metformin 500mg daily, Mounjaro 2.5mg. Has lost about 8 lbs since last office visit. She notes she has been tolerating mounjaro okay. Pt notes last mammogram 5-6 years ago. HPI Comments History of Present Illness Details Documentation assistance for Avila Gray MD, was provided by Morgan Mcwilliams, [employer] on 09/24/2025 at 2:50 PM EST. I, Dr. Gray, have read, observed, and verified documentation. [facility] Medical History Bleeding hemorrhoids Herpes Obese Bunion of right foot Knee pain, left Annual physical exam Dysplastic nevi History of broken nose Surgical History History of foot surgery History of tonsillectomy Family History Mother No problems noted. 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 1. Little interest or pleasure in doing things: not at all 2. Feeling down, depressed, or hopeless: not at all 3. Trouble falling or staying asleep, or sleeping too much: not at all 4. Feeling tired or having little energy: several days 5. Poor appetite or overeating: not at all 6. Feeling bad about yourself - or that you are a failure or have let yourself or your family down: not at all 7. Trouble concentrating on things, such as reading the newspaper or watching television: not at all 8. Moving or speaking so slowly that other people could have noticed. Or the opposite - being so fidgety or restless that you have been moving around a lot more than usual: not at all 9. Thoughts that you would be better off or of hurting yourself in some way: not at all Total score: 1 Source: Developed by Drs. Dylan Cole, Kristen Correa, Eloy Hamilton and colleagues, with an educational jo from [employer]. Thrive Questionnaire Date Thrive assessed: 05/11/25 I am a: Patient What is your living situation today?: I have a steady place to live Within the past 12 months, did the food you bought not last and you didn't have the money to get more?: Never true Within the past 12 months, did you worry whether your food would run out before you got money to buy more?: Never true Do you have trouble paying for medicines?: No Do you have trouble getting transportation to medical appointments?: No Do you have trouble paying your heating and electricity bill?: Yes Do you have trouble taking care of your child, family member or friend?: No Do you have trouble with day-to-day activities such as bathing, preparing meals, shopping, managing finances, etc.?: No Are you currently unemployed and looking for a job?: No Are you interested in more education?: No Please select the resources that you would like help with: None Currently or been in a relationship where the following occur: No concerns reported THRIVE Score: 1 AUDIT C Alcohol Use Questionnaire (AUDIT-C) 1. How often do you have a drink containing alcohol?: Never 3. How often do you have six or more drinks on one occasion?: Never Total Score: 0 LISSET-7 AMB Questionnaire LISSET-7 Date LISSET - 7 assessed: 05/11/25 Feeling nervous, anxious, or on edge: 0 = Not at all Not being able to stop or control worryin = Not at all Worrying too much about different things: 0 = Not at all Trouble relaxin = Not at all Being so restless that it is hard to sit still: 0 = Not at all Becoming easily annoyed or irritable: 0 = Not at all Feeling afraid as if something awful might happen: 0 = Not at all Total LISSET-7 score (0-4 normal; 5-9 mild; 10-14 moderate; 15-21 severe): 0 Source: Developed by Drs. Dylan Cole, Kristen Correa, Eloy Hamilton and colleagues, with an educational jo from [employer]. Review of Systems Const Denies chills, Denies fatigue, Denies fever(s), Denies headache(s) and Denies weakness ENT Denies dizziness and Denies headache(s) Card Denies dyspnea Resp Denies cough, Denies dyspnea, Denies wheezing and Denies other (shortness of breath) Musc Denies numbness and Denies tingling Neuro Denies dizziness, Denies headache(s), Denies numbness, Denies tingling and Denies weakness Psych Denies anxiety and Denies depression Endo Denies fatigue Aller/Immun Denies wheezing Physical exam (Primary Care) Vital Signs: Last Vital Signs Pulse 92 09/24/25 14:33 BP 128/72 09/24/25 14:33 Pulse Ox 97 09/24/25 14:33 Oxygen Delivery Method Room Air 09/24/25 14:33 BMI result Body Mass Index 39.1 Tobacco/Smoking Status: Tobacco use Status Tobacco use date assessed 09/24/25 09/24/25 14:40 Patient Tobacco Use Status Former Tobacco user 09/24/25 14:40 e-Cigarette/Vaping Use Never Used 09/24/25 14:40 PHQ-9: PHQ-9 Score PHQ-9: Total score 1 09/24/25 14:48 Thrive Assessment: Date of Thrive Assessment Date Thrive assessed 05/11/25 09/24/25 14:40 Currently or been in a relationship where the following occur: No concerns reported Const General: well developed; No acute distress Nutritional Appearance: well nourished Orientation/consciousness: patient oriented x3 HENMT Head: Yes normocephalic and Yes atraumatic Eyes General: appearance normal, both eyes and all related structures Pupils: Equal, round and reactive pupils present EOM: EOMs intact bilaterally Resp Effort & Inspection: normal respiratory effort Neuro General: patient oriented x3 and gait normal Cranial nerves: Yes Equal, round and reactive pupils present Psych Affect: normal affect Results AMB Hemoglobin A1c AMB Hemoglobin A1c 5.7 % Last Edit by Mechelle Gabriel CMA on 09/24/25 14:46 Results Reviewed Results Reviewed: Laboratory Last Values Hgb A1c (Clinic) 5.7 % (4.0-6.0) 09/24/25 14:41 Coding Level of Care Code Est Pt Level 4 (53832) Diagnoses Diabetes E11.9 Obese E66.9 Vaginal dryness N89.8 Cervical cancer screening Z12.4 Breast cancer screening Z12.39 Assessment & Plan Assessment & Plan (1) Diabetes: Code(s): E11.9 - Type 2 diabetes mellitus without complications Category: Medical Plan: A1c now 5.7%. Good control. Goal is less than 7.0% She is now taking metformin and Mounjaro Continue current medication regimen Continue working on diabetic diet and weight loss (2) Obese: Code(s): E66.9 - Obesity, unspecified Category: Medical Plan: Has lost around 8 lb since her last visit in July She says she continues to lose weight She does note some nausea or queasiness Continue at current dose. No increase in dose at this time (3) Vaginal dryness: Code(s): N89.8 - Other specified noninflammatory disorders of vagina Category: Medical Plan: Can start estradiol cream (4) Cervical cancer screening: Code(s): Z12.4 - Encounter for screening for malignant neoplasm of cervix Category: Medical Plan: Patient would like a new referral Ordered (5) Breast cancer screening: Code(s): Z12.39 - Encounter for other screening for malignant neoplasm of breast Category: Medical Plan: Mammogram is ordered Get mammogram and we can review at a subsequent visit Orders: Orders AMB Hemoglobin A1c Today Z13.9 - Encounter for screening, unspecified Referrals [facility] [employer] Referral Z12.4 - Encounter for screening for malignant neoplasm of cervix Medications: New estradiol 0.01%(0.1mg/gram) 1 g vaginal 3XW 42.5 grams 3RF 30 days Refilled metformin 500 mg PO DAILY 90 tabs 2RF 90 days
== END 2025-09-24 15:05 | disposition home or self-care (01) ==
LOC: HO.HMCFM 14:31
PROVIDERS: PCP Family Medicine; Visit Provider Family Medicine
DX: E11.9 Type 2 diabetes mellitus without complications (principal); E66.9 Obesity, unspecified; Z68.39 Body mass index [BMI] 39.0-39.9, adult; N89.8 Other specified noninflammatory disorders of vagina; Z12.39 Encounter for other screening for malignant neoplasm of breast

== ENCOUNTER → 2025-09-24 14:30 | Outpatient (BNVA) | payer BC, SELFPAY | PROVIDERS: PCP Family Medicine; Visit Provider Family Medicine | DX: Z12.4 Encounter for screening for malignant neoplasm of cervix (principal); Z12.39 Encounter for other screening for malignant neoplasm of breast; E11.9 Type 2 diabetes mellitus without complications; E66.9 Obesity, unspecified; N89.8 Other specified noninflammatory disorders of vagina; Z79.84 Long term (current) use of oral hypoglycemic drugs; Z79.85 Long-term (current) use of injectable non-insulin antidiabetic drugs | CPT/HCPCS: 83036; 96127 ==